=== PATIENT | male | born 1995 | race Caucasian/White ===

== ENCOUNTER 2021-05-17 13:46 | Outpatient (REF) | payer BC, OTHER, SELFPAY ==
[2021-05-17 14:37] LABS: Influenza A PCR NEGATIVE (Negative); Influenza B PCR NEGATIVE (Negative); Resp Syncy Virus RNA Qual PCR POSITIVE (Negative); SARS COV2 PCR INHOUSE NEGATIVE (Negative)
== END 2021-05-17 13:47 | disposition home or self-care (01) ==
LOC: HO.LNP 13:46
PROVIDERS: Visit Provider Physician Assistant Medical
DX: Z20.822 Contact with and (suspected) exposure to COVID-19 (principal); J06.9 Acute upper respiratory infection, unspecified
CPT/HCPCS: 0241U

== ENCOUNTER 2023-05-13 09:06 | Outpatient (AMB) | payer OTHER, SELFPAY ==
--- NOTE | 2023-05-13 09:46 | MHC.OFFWIV ---
Intake Vital Signs 05/13/23 09:54 Height 5 ft 9 in Weight 327 lb BMI 48.3 BP 120/80 Blood Pressure Location Rt brachial Position Sitting Pulse 73 Pulse Source Pulse Oximeter Temp 97.6 F Temp Source Oral Pulse Oximetry (%) 97 Oxygen Delivery Method Room Air Intake Visit Reasons: EST/cold/flu symptoms/[phone] Intake Note: Patient here for covid test as he was exposed to someone who had it about 1 week ago and was feeling fine until this past Thursday when he woke up with a bad headache, bodyaches. Patient Tobacco Use Status: Former Tobacco user Allergies amoxicillin Allergy (Verified 05/13/23 09:48) Rash Do you need a note to return to daycare/school/sports/work: Yes HPI HPI Comments History of Present Illness Details This is a 27-year-old male with past medical history of seasonal allergies and asthma presenting requesting testing for COVID-19. Patient states he was exposed to an individual with COVID-19 approximately 10 days ago when they were sharing a bong, smoking marijuana and his friend tested positive for COVID-19 the next day. Patient states he has been fully vaccinated for COVID-19 however has not received his most recent booster. Over the past 4 days the patient has developed headache, shortness of breath, cough and mild rhinorrhea. He denies having overt fevers or chills and has been taking Tylenol only for management of his headache. [facility] Social History Patient Tobacco Use Status: Former Tobacco user Review of Systems Const All systems reviewed & are unremarkable except as noted in HPI and below Denies chills, Denies fatigue and Denies fever(s) Eyes Reports no additional complaints ENT Reports nasal congestion, Denies sinus pressure and Reports other (Rhinorrhea) Card Reports no additional complaints and Reports dyspnea Resp Reports cough and Reports dyspnea GI Reports no additional complaints, Denies loose stools, Denies nausea and Denies vomiting Reports no additional complaints Musc Reports no additional complaints Skin/Breast Reports system reviewed and no additional complaints, except as documented Neuro Reports no additional complaints Psych Reports no additional complaints Endo Denies fatigue Virgil/Lymph Reports no additional complaints Physical Exam Vital Signs: Last Vital Signs Temp 97.6 F 05/13/23 09:54 Pulse 73 05/13/23 09:54 BP 120/80 05/13/23 09:54 Pulse Ox 97 05/13/23 09:54 Oxygen Delivery Method Room Air 05/13/23 09:54 BMI result Body Mass Index 48.3 Const General: cooperative, comfortable and no acute distress; No ill appearing Nutritional Appearance: obese Orientation/consciousness: patient oriented x3 Limitations: no limitations HEENT Head: Yes normal to inspection Ears: hearing grossly normal bilaterally, external ears normal and TM's normal bilaterally General nose exam: Normal external nose present and No nasal discharge present Face and sinus: Yes normal facial exam and No sinus tenderness Mouth: Normal oral and palatal mucosa present and moist mucous membranes Throat: Yes posterior oropharynx normal Eyes General: appearance normal, both eyes and all related structures Conjunctivae: conjunctivae normal Sclerae: sclerae normal EOM: EOMs intact bilaterally Resp Effort & Inspection: normal respiratory effort Auscultation: clear to auscultation bilaterally, no wheezes and lung sounds not diminished Cardio Rate: regular rate Rhythm: regular rhythm Neuro General: patient oriented x3 Psych Appearance: grossly normal Mental Status: mental status grossly normal Insight: Good insight present (Psych) Judgement: Good judgement present (Psych) Results Reviewed Results Reviewed: COVID 19 negative - results reviewed with patient. Assessment & Plan Assessment & Plan (1) Cough: Code(s): R05.9 - Cough, unspecified Plan: Testing for COVID-19 initiated and pending. (2) Body aches: Code(s): R52 - Pain, unspecified Plan: Increase water intake daily and use Tylenol or ibuprofen for symptoms. Follow-up with primary care within 7 days if your symptoms persist. Orders: Orders [facility]ax[facility] Covid-19 Ag Today R05.9 - Cough, unspecified, R52 - Pain, unspecified Coding Level of Care Code New Pt Level 3 (68700) Diagnoses Cough R05.9 Body aches R52 Time Spent (min) 25
[2023-05-13 09:54] VITALS: BP 120/80; PULSE 73; TEMP 36.4; O2SAT 97; BMI 48.3
== END 2023-05-13 10:20 | disposition home or self-care (01) ==
PROVIDERS: Visit Provider Physician Assistant
DX: R05.9 Cough, unspecified (principal); R52 Pain, unspecified
CPT/HCPCS: 99203

== ENCOUNTER 2023-05-13 10:18 | Outpatient (REF) | payer OTHER, SELFPAY | END 2023-05-13 10:19 | disposition home or self-care (01) | LOC: HO.HMGCLDS 10:18 | PROVIDERS: Visit Provider Physician Assistant | DX: R05.9 Cough, unspecified (principal); R52 Pain, unspecified | CPT/HCPCS: 87811; C9803 ==

== ENCOUNTER 2023-07-17 16:12 | Outpatient (AMB) | payer OTHER, SELFPAY ==
[2023-07-17 16:13] VITALS: BP 126/88; PULSE 67; O2SAT 100; BMI 48.6
--- NOTE | 2023-07-17 16:13 | MHC.PC.OV ---
Vital Signs 07/17/23 16:13 Height 5 ft 9 in Weight 329 lb BMI 48.6 BP 126/88 Blood Pressure Location Lt brachial Position Sitting Pulse 67 Pulse Source Pulse Oximeter Pulse Oximetry (%) 100 Oxygen Delivery Method Room Air Intake Visit Reasons: NPV/requesting phy Customs Verifier Required: No Allergies amoxicillin Allergy (Verified 07/17/23 16:29) Rash Medication List - Last Reconciled 07/17/23 by WALKER Aponte albuterol sulfate 90 mcg/actuation 2 puffs inhalation Q6H PRN emtricitabine-tenofovir (TDF) 200-300 mg 1 tab PO DAILY estradiol mg PO loratadine (Claritin) 10 mg PO DAILY PRN Tobacco use date assessed: 07/17/23 Dental Screening Dental Screen Date: 07/17/23 Did you have a dental visit in the last 12 months?: Yes Did you have a dental problem in the last 6 months where you did not have access to dental care?: No Was dental information given to patient?: Patient has dentist HPI NPV/requesting phy HPI Details 28-year-old patient (transitioning from male to female) presents today for physical exam as a new patient. Previous PCP at [facility] about 1 year ago. Medical history significant for postnasal drip, MARY-on CPAP, depression with anxiety-will be seeing therapist at [facility], morbid obesity-interested in weight management referral. Denies shortness of breath or chest pain. No other concerns. [facility] Medical History Body aches Cough Viral illness Surgical History H/O adenoidectomy H/O: knee surgery Hx of tonsillectomy Family History (Updated 07/17/23 @ 16:37 by WALKER Aponte) Mother No problems noted. Maternal Grandmother Diabetes Father No problems noted. Paternal Grandfather Heart attack Social History Patient Tobacco Use Status: Former Tobacco user Cognitive needs: No Hearing needs: No Vision needs: No Questionnaire PHQ-9 Over the last 2 weeks, how often have you been bothered by any of the following problems? 1. Little interest or pleasure in doing things: not at all 2. Feeling down, depressed, or hopeless: several days 3. Trouble falling or staying asleep, or sleeping too much: not at all 4. Feeling tired or having little energy: not at all 5. Poor appetite or overeating: not at all 6. Feeling bad about yourself - or that you are a failure or have let yourself or your family down: not at all 7. Trouble concentrating on things, such as reading the newspaper or watching television: not at all 8. Moving or speaking so slowly that other people could have noticed. Or the opposite - being so fidgety or restless that you have been moving around a lot more than usual: not at all 9. Thoughts that you would be better off or of hurting yourself in some way: not at all Total score: 1 Depression Screening Interpretation: Positive Depression Screening Follow-up: Existing condition and In treatment Depression Screening Done: Yes 93925 - PHQ-9 Billing: Yes Source: Developed by Drs. Isaak Ordoñez, Clare Carrillo, Chema Smith and colleagues, with an educational nelson from [employer]. Thrive Questionnaire Date Thrive assessed: 07/17/23 I am a: Patient What is your living situation today?: I have a steady place to live Within the past 12 months, did the food you bought not last and you didn't have the money to get more?: Never true Within the past 12 months, did you worry whether your food would run out before you got money to buy more?: Never true Do you have trouble paying for medicines?: No Do you have trouble getting transportation to medical appointments?: No Do you have trouble paying your heating and electricity bill?: No Do you have trouble taking care of your child, family member or friend?: No Do you have trouble with day-to-day activities such as bathing, preparing meals, shopping, managing finances, etc.?: No Are you currently unemployed and looking for a job?: No Are you interested in more education?: No Currently or been in a relationship where the following occur: no concerns reported AUDIT C Alcohol Use Questionnaire (AUDIT-C) 1. How often do you have a drink containing alcohol?: 2-4 times a month 2. How many drinks containing alcohol do you have on a typical day when you are drinking?: 3 or 4 3. How often do you have six or more drinks on one occasion?: Never Total Score: 3 Score Reviewed/Action Taken: No MAYTE-7 AMB Questionnaire MAYTE-7 Date MAYTE - 7 assessed: 07/17/23 (pt seeing therapist ) Feeling nervous, anxious, or on edge: 0 = Not at all Not being able to stop or control worryin = Several days Worrying too much about different things: 0 = Not at all Trouble relaxin = Not at all Being so restless that it is hard to sit still: 0 = Not at all Becoming easily annoyed or irritable: 0 = Not at all Feeling afraid as if something awful might happen: 0 = Not at all Total MAYTE-7 score (0-4 normal; 5-9 mild; 10-14 moderate; 15-21 severe): 1 Source: Developed by Drs. Isaak Ordoñez, Clare Carrillo, Chema Smith and colleagues, with an educational nelson from [employer]. MAYTE-7 Assessment Billing MAYTE-7 Assessment Tool: MAYTE-7 Assessment 96607 Review of Systems Const Denies body aches, Denies chills, Denies fever(s) and Denies headache(s) Eyes Denies change in vision ENT Denies dizziness, Denies otalgia, Denies headache(s), Denies nasal discharge, Denies sinus pain and Denies sore throat Card Denies chest pain, Denies edema, Denies lightheadedness and Denies dyspnea Resp Denies cough, Denies dyspnea and Denies wheezing GI Denies abdominal pain, Denies constipation, Denies diarrhea, Denies nausea and Denies vomiting Denies dysuria Musc Denies myalgias Skin/Breast Denies rash Neuro Denies dizziness and Denies headache(s) Aller/Immun Denies wheezing Physical exam (Primary Care) Vital Signs: Last Vital Signs Pulse 67 07/17/23 16:13 BP 126/88 07/17/23 16:13 Pulse Ox 100 07/17/23 16:13 Oxygen Delivery Method Room Air 07/17/23 16:13 BMI result Body Mass Index 48.6 Tobacco/Smoking Status: Tobacco use Status Tobacco use date assessed 07/17/23 07/17/23 16:22 Patient Tobacco Use Status Former Tobacco user 07/17/23 16:22 PHQ-9: PHQ-9 Score PHQ-9: Total score 1 07/17/23 16:38 Depression Screening Interpretation: Positive Depression Screening Follow-up: Existing condition and In treatment Thrive Assessment: Date of Thrive Assessment Date Thrive assessed 07/17/23 07/17/23 16:22 Currently or been in a relationship where the following occur: no concerns reported Const General: cooperative and no acute distress Orientation/consciousness: patient oriented x3 HENMT Head: Yes normocephalic and Yes atraumatic Ears: TM's normal bilaterally Face and sinus: Yes sinuses nontender Mouth: oropharynx normal and moist mucous membranes Throat: Yes posterior oropharynx normal Eyes General: appearance normal, both eyes and all related structures Pupils: Equal, round and reactive pupils present EOM: EOMs intact bilaterally Neck Neck: Yes normal visual inspection, Yes full ROM and Yes no lymphadenopathy Thyroid: Thyroid normal Resp Effort & Inspection: normal respiratory effort and able to speak in complete sentences Auscultation: clear to auscultation bilaterally, no crackles, no rales, no rhonchi and no wheezes Cardio Rate: regular rate Rhythm: regular rhythm Heart sounds: S1 normal heart sound present, S2 normal heart sound present and no murmurs GI Palpation (GI): Soft to palpation, not firm, nontender, no guarding, not rigid and no hepatosplenomegaly Auscultation: normal bowel sounds General: No CVA tenderness Back/Spine/Pelvis Back: No CVA tenderness Skin General skin exam: no rashes or lesions noted Neuro General: patient oriented x3 Cranial nerves: Yes Equal, round and reactive pupils present Gait exam (Neuro): Normal gait present Extrem General: Yes full ROM and No edema Office Procedures Flu Questionnaire Does the patient have a severe egg allergy?: No Does the patient have severe life threatening allergies?: No Does the patient have a fever or illness today?: No Has the patient ever had Guillain-Mize Syndrome?: No Has the patient ever had any past reaction to a flu shot?: No Immunizations flu vacc [id number] 6mos up(PF) 60 mcg(15 mcgx4)/0.5 mL IM syringe Performing Provider: WALKER Aponte Performing Location: [facility] Primary [facility] Administered by: JENNIFER Workman on 07/17/23 16:26 Dose Route Admin Location Dispensed Lot Number Expiration Date NDC Nurse Case Manager 0.5 mL IM Left Deltoid 0.5 mL [id number] 01/31/24 [id number] T3 MOTION VIS Given Date VIS Provided VIS Publication Date 07/17/23 Single Vaccine 21 Eligibility Eligibility Date Funding Source Not [facility] Eligible 07/17/23 Private Assessment and Plan Assessment & Plan (1) Postnasal drip: Code(s): R09.82 - Postnasal drip Plan: Stable Reports using albuterol inhaler p.r.n. and Claritin p.r.n. (2) MARY (obstructive sleep apnea): Comment: on CPAP Code(s): G47.33 - Obstructive sleep apnea (adult) (pediatric) (3) Depression with anxiety: Code(s): F41.8 - Other specified anxiety disorders Plan: Will be seeing therapist at [facility] (4) Adult general medical exam: Code(s): Z00.00 - Encounter for general adult medical examination without abnormal findings Plan: Repeat in 1 year (5) Morbid obesity with BMI of 45.0-49.9, adult: Code(s): E66.01 - Morbid (severe) obesity due to excess calories; Z68.42 - Body mass index [BMI] 45.0-49.9, adult Plan: Healthy food choices and exercise as tolerated Weight management referral (6) Gender dysphoria: Code(s): F64.9 - Gender identity disorder, unspecified Plan: Followed by [facility] on estradiol (7) On pre-exposure prophylaxis for HIV: Code(s): Z79.899 - Other extermination supervisor (current) drug therapy Plan: Followed by [facility] Orders: Orders Influenza [id number] Immunization 07/17/23 Z23 - Encounter for immunization TSH reflex Free T4 07/17/23 Z00.00 - Encounter for general adult medical examination without abnormal findings Lipid Panel 07/17/23 Z00.00 - Encounter for general adult medical examination without abnormal findings Comprehensive [place]. Panel Fast 07/17/23 Z00.00 - Encounter for general adult medical examination without abnormal findings Complete Blood Count Auto Diff 07/17/23 Z00.00 - Encounter for general adult medical examination without abnormal findings Vitamin D 25-OH Total 12/15/23 Z00.00 - Encounter for general adult medical examination without abnormal findings Referrals Medical Weight Management Referral E66.01 - Morbid (severe) obesity due to excess calories, Z68.42 - Body mass index [BMI] 45.0-49.9, adult Medications: New albuterol sulfate 90 mcg/actuation 2 puffs inhalation Q6H PRN 8.5 grams 0RF shortness of breath or wheezing R09.82 - Postnasal drip Coding Level of Care Code New Pt Prev Care 18-39yr(55170 Diagnoses Postnasal drip R09.82 MARY (obstructive sleep apnea) G47.33 Depression with anxiety F41.8 Adult general medical exam Z00.00 Morbid obesity with BMI of 45.0-49.9, adult E66.01; Z68.42 Gender dysphoria F64.9 On pre-exposure prophylaxis for HIV Z79.899 Additional Codes MAYTE-7 Assessment Billing - MAYTE-7 Assessment Tool: MAYTE-7 Assessment 87403 ([id number])
== END 2023-07-17 16:50 | disposition home or self-care (01) ==
PROVIDERS: Visit Provider Nurse Practitioner Family
DX: Z00.00 Encounter for general adult medical examination without abnormal findings (principal); E66.01 Morbid (severe) obesity due to excess calories; Z68.42 Body mass index [BMI] 45.0-49.9, adult; R09.82 Postnasal drip; G47.33 Obstructive sleep apnea (adult) (pediatric); F41.8 Other specified anxiety disorders; F64.9 Gender identity disorder, unspecified; Z79.899 Other long term (current) drug therapy
CPT/HCPCS: 90471; 90686; 96127; 99385

== ENCOUNTER 2023-09-01 08:32 | Outpatient (AMB) | payer OTHER, SELFPAY ==
[2023-09-01 09:09] VITALS: BP 140/78; PULSE 96; TEMP 36.5; O2SAT 96; BMI 48.7
--- NOTE | 2023-09-01 09:09 | MHC.OFFWIV ---
Intake Vital Signs 09/01/23 09:09 Height 5 ft 9 in Weight 149.685 kg BMI 48.7 BP 140/78 H Blood Pressure Location Lt brachial Position Sitting Pulse 96 Pulse Source Pulse Oximeter Temp 97.7 F Temp Source Temporal Artery Scan Pulse Oximetry (%) 96 Oxygen Delivery Method Room Air Intake Visit Reasons: EST/persistant cough/ear pain ([phone]) Intake Note: pt is here today for persistant cough ear pain started thursday Patient Tobacco Use Status: Former Tobacco user Allergies amoxicillin Allergy (Verified 09/01/23 09:10) Rash Do you need a note to return to daycare/school/sports/work: Yes HPI HPI Comments History of Present Illness Details 28-year-old male presents with fatigue, malaise, myalgias, bilateral ear pain worse on the right described as a throbbing pain, productive cough of yellow/white sputum this has been ongoing for 2 weeks not improving. Denies recent sick contacts. Reports intermittent wheezing. Denies chest pain, shortness of breath, nausea, vomiting, diarrhea, abdominal pain. Physical exam significant for wheezing the left upper lung. Speaking full sentences controlling secretions well also noted to have erythematous and bulging right-sided tympanic membrane. History and physical exam consistent with otitis media as well as bronchitis. Unlikely pulmonary embolism, patient PERC negative, ACS, dissection, acute respiratory distress, mastoiditis or otitis externa. Will cover with doxycycline 100 mg p.o. b.i.d. as this will cover for bronchitis as well as otitis as patient does have an allergy to amoxicillin. Will also send prednisone, albuterol inhaler. Educated patient on diagnosis and treatment plan, answered all question, patient verbalizes understanding. At this time patient will be discharged home, advised to return with new or worsening symptoms. Educated on worrisome signs and symptoms and when to return. At this time I feel comfortable discharge home. [facility] Medical History Body aches Cough Viral illness Surgical History H/O adenoidectomy H/O: knee surgery Hx of tonsillectomy Family History Mother No problems noted. Maternal Grandmother Diabetes Father No problems noted. Paternal Grandfather Heart attack Social History Patient Tobacco Use Status: Former Tobacco user Cognitive needs: No Hearing needs: No Vision needs: No Review of Systems Const All systems reviewed & are unremarkable except as noted in HPI and below Physical Exam Vital Signs: Last Vital Signs Temp 97.7 F 09/01/23 09:09 Pulse 96 09/01/23 09:09 BP 140/78 H 09/01/23 09:09 Pulse Ox 96 09/01/23 09:09 Oxygen Delivery Method Room Air 09/01/23 09:09 BMI result Body Mass Index 48.7 vss 96% even after ambulation Appearance: Alert.? Oriented X3.? No acute distress.? Head: Normocephalic, atraumatic, no step-offs or deformities Eyes: Pupils equal, round and reactive to light.? ENT: wheezing the left upper lung. Speaking full sentences controlling secretions well Neck: Normal inspection.? Neck supple.? CVS: Normal heart rate and rhythm.? Pulses normal.? Respiratory: No respiratory distress.? Breath sounds with diffuse wheezing bilaterally.? Abdomen: Soft and nontender.? Skin: Skin warm and dry.? Normal skin color.? Normal skin turgor.? Extremities: No lower extremity edema.? No calf ttp. 5/5 strength to bilateral upper and lower extremities Neuro: Oriented X 3.? No motor deficit.? No sensory deficit. CN 2-12 intact Assessment & Plan Assessment & Plan (1) Otitis media: Code(s): H66.90 - Otitis media, unspecified, unspecified ear (2) Bronchitis: Code(s): J40 - Bronchitis, not specified as acute or chronic Plan Take your medications as prescribed. If you were prescribed antibiotics today, it is important that you take your medication to their entirety, do not skip any doses, do not finish them early. Follow-up with your primary care provider this week. Return to the emergency department with new or worsening symptoms. Such as fevers, chills, chest pain, shortness of breath, nausea, vomiting, dizziness, headache, vision changes, lethargy In case of emergency call 911 Medications: New doxycycline hyclate 100 mg PO BID 7 days 14 caps 0RF prednisone 40 mg (2 x 20 mg) PO DAILY 5 days 10 tabs 0RF albuterol sulfate 90 mcg/actuation 2 puffs inhalation Q6H PRN 6.7 grams 0RF shortness of breath or wheezing benzonatate 100 mg PO BID PRN 14 caps 0RF cough Coding Level of Care Code Est Pt Level 3 (16246) Diagnoses Otitis media H66.90 Bronchitis J40
== END 2023-09-01 09:40 | disposition home or self-care (01) ==
PROVIDERS: PCP Nurse Practitioner Family; Visit Provider Physician Assistant
DX: H66.90 Otitis media, unspecified, unspecified ear (principal); J40 Bronchitis, not specified as acute or chronic
CPT/HCPCS: 99213

== ENCOUNTER 2024-08-31 11:25 | Outpatient (AMB) | payer OTHER, SELFPAY ==
--- NOTE | 2024-08-31 11:43 | AM.OFFWIN_ITS ---
Intake Vital Signs 08/31/24 12:05 Weight 367 lb BP 108/72 Blood Pressure Location Lt brachial Position Sitting Pulse 82 Pulse Source Pulse Oximeter Temp 97.8 F Temp Source Oral Pulse Oximetry (%) 96 Oxygen Delivery Method Room Air Intake Visit Reasons: EP sore throat, cough, phlegm Intake Note: Patient here for cough, sinus congestion and loss of voice since last week Patient Tobacco Use Status: Former Tobacco user Allergies amoxicillin Allergy (Verified 08/31/24 12:05) Rash Do you need a note to return to daycare/school/sports/work: Yes HPI HPI Comments History of Present Illness Details Patient is a 29yo who presents to office with cold Started one week ago Started as congestion/seasonal Has progressed to St and cough Said irritated mucus in phlegm and lungs; pink color this am which has resolved No fever or chills currently + ear ache and hx of infection Has taken OTC cough medicine and herbal remidies Has used Albuterol in past but does not have currently PFSH Medical History Body aches Cough Viral illness Surgical History H/O adenoidectomy H/O: knee surgery Hx of tonsillectomy Family History Mother No problems noted. Maternal Grandmother Diabetes Father No problems noted. Paternal Grandfather Heart attack Social History Patient Tobacco Use Status: Former Tobacco user Cognitive needs: No Hearing needs: No Vision needs: No Review of Systems Const Denies chills, Reports fatigue and Denies fever(s) Eyes Denies change in vision ENT Denies dizziness, Reports otalgia, Reports nasal congestion and Reports sore throat Card Denies chest pain, Denies syncope and Denies dyspnea Resp Reports change in phlegm color, Reports cough and Denies dyspnea GI Denies abdominal pain Musc Denies myalgias Skin/Breast Denies rash Neuro Denies dizziness and Denies syncope Endo Reports fatigue Physical Exam Vital Signs: Last Vital Signs Temp 97.8 F 08/31/24 12:05 Pulse 82 08/31/24 12:05 BP 108/72 08/31/24 12:05 Pulse Ox 96 08/31/24 12:05 Oxygen Delivery Method Room Air 08/31/24 12:05 General: Non-toxic, NAD. Speaking full sentences. Skin: Warm dry throughout Eye: EOMI HENT: Airway patent. Uvula midline. Minimal pharyngeal erythema or edema. 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 Mucosa moist Bilateral canals clear. TM non-erythematous, non-bulging. No TM perforation or hemotympanum noted. Respiratory: Faint wheeze L upper and lower lungs. Otherwise, CTA bilaterally. No rales or rhonchi Cardiac: RRR. No murmur Neurology: Alert. No aphasia or facial droop. Gait without abnormality Psych: Good mood and affect Assessment & Plan Assessment & Plan (1) Acute bacterial bronchitis: Code(s): J20.8 - Acute bronchitis due to other specified organisms; B96.89 - Other specified bacterial agents as the cause of diseases classified elsewhere Plan: Patient seen and evaluated. Has inhaler called in by PCP; difficulty getting at pharmacy Azithromycin called in Discussed pink tint in phlegm that he experienced earlier as irritation. Discussed if it becomes michelle sized, clot like or any associated CP, SOB syncope etc go to ER immediately for concern PE. Vitals are stable and pt aware and agree with plan Patient gave verbal understanding and had no additional questions or concerns at time of discharge All questions answered Medications: New azithromycin For 250 mg dose pack: take 500 mg today (day 1), then 250 mg for 4 days (days 2-5) PO 6 tabs 0RF Coding Level of Care Code Est Pt Level 3 (74740) Diagnoses Acute bacterial bronchitis J20.8; B96.89
[2024-08-31 12:05] VITALS: BP 108/72; PULSE 82; TEMP 36.6; O2SAT 96
--- OUTSIDE RECORDS SUMMARY | 2024-08-31 13:50 | XMS_ITS | Data Portability ---
Author Organization [facility], [address] Address [address] [place] [address] Assessment No assessment recorded. Plan of Treatment Reminders Order Date Submit Date Provider Last Modified By Organization Details Last Modified Time Details Appointments None recorded. Lab rapid SARS CoV 2 Ag, QL IA, respiratory specimen 2022 023 [facility], [address] [place] [address], [id number], 14:01:30 Referral None recorded. Procedures None recorded. Surgeries None recorded. Imaging None recorded. Medication Orders cefdinir 300 mg capsule 2022 023 [id number], [address] [place], [place], [id number], 3 20:15:48 prednisone 20 mg tablet 2022 023 [facility] #[id number], [address], [place], [id number], 3 14:05:32 Allergy Relief (fluticason e) 50 mcg/actuati on nasal spray,suspe nsion 2022 023 [facility] #[id number], [address], [place], [id number], 3 14:05:32 Patient TargetsNo targets recorded. Patient Instructions Encounter Date Encounter Id Patient Instructions Last Modified By Organization Details Last Modified Time 09/27/2022 [id number] coronavirus (covid-19): care instructions Not available 09/27/2022 14:02:59 headache: care instructions Not available 09/27/2022 14:02:59 If you test positive for COVID-19, stay home for at least 5 days and isolate from others in your home. You are likely most infectious during these first 5 days. Wear a high-quality mask if you must be around others at home and in public. Do not go places where you are unable to wear a mask. For travel guidance, see CDC? s Travel webpage. Do not travel. Stay home and separate from others as much as possible. Use a separate bathroom, if possible. Take steps to improve ventilation at home, if possible. Don? t share personal household items, like cups, towels, and utensils. Monitor your symptoms. If you have an emergency warning sign (like trouble breathing), seek emergency medical care immediately. If you had symptoms and: Your symptoms are improving You may end isolation after day 5 if: You are fever-free for 24 hours (without the use of fever-reducing medication). Your symptoms are not improving Continue to isolate until: You are fever-free for 24 hours (without the use of fever-reducing medication). Your symptoms are improving. Regardless of when you end isolation Until at least day 11: Avoid being around people who are more likely to get very sick from COVID-19. Remember to wear a high-quality mask when indoors around others at home and in public. Do not go places where you are unable to wear a mask until you are able to discontinue masking (see below). For travel guidance, see CDC? s Travel webpage. Not available 09/27/2022 14:04:45 An ear infection may start with a cold and affect the middle ear (otitis media). It can hurt a lot. Most ear infections clear up on their own in a couple of days and do not need antibiotics. Also, antibiotics do not work against viruses, which may be the cause of your infection. Regular doses of pain relievers are the best way to reduce your fever and help you feel better. How can you care for yourself at home? Take pain medicines exactly as directed. If the doctor gave you a prescription medicine for pain, take it as prescribed. If you are not taking a prescription pain medicine, take an vskr-eym-hoyxixm medicine, such as acetaminophen (Tylenol), ibuprofen (Advil, Motrin), or naproxen (Aleve). Read and follow all instructions on the label. Do not take two or more pain medicines at the same time unless the doctor told you to. Many pain medicines have acetaminophen, which is Tylenol. Too much acetaminophen (Tylenol) can be harmful. Plan to take a full dose of pain reliever before bedtime. Getting enough sleep will help you get better. Try a warm, moist face cloth on the ear. It may help relieve pain. If your doctor prescribed antibiotics, take them as directed. Do not stop taking them just because you feel better. You need to take the full course of antibiotics. [email or web address] Not available 09/27/2022 14:04:35 Reason for Referral None Reported. Results Created Date Observation Date Name Description Value Unit Range Abnormal Flag Note LastModifiedBy Organization Detail LastModifiedTime 09/27/1909/27/2022 rapid SARS CoV 2 Ag, QL IA, respi rator y speci men Unknown Analyte Normal =Negat marie Not Available [address], [phone], 09/27/2022 13:26:02 09/27/1909/27/2022 rapid SARS CoV 2 Ag, QL IA, respi rator y speci men Unknown Analyte negati ve Not Available [address] [place] [address], [phone], 09/27/2022 13:26:02 Result Notes None recorded. Problems Name Problem SNOMED Code Status Onset Date Resolution Date Notes Provider Name and Address Organization Details Recorded Time Anxiety 44585838 Active 023 [facility] 3 13:29:22 Depressive disorder 54439825 Active 023 [facility]I [facility] 3 13:29:29 Problem Notes None recorded. Procedures Surgical History Date Name Laterality Status Provider Name and Address Organization Details Recorded Time tonsillectomy completed Annette Philippejaron PA - [facility] 09/27/2022 13:31:54 repair of meniscus completed nAnette Estradaoscar PA - [facility] 09/27/2022 13:32:13 Imaging Results None recorded. Procedure Notes None recorded. Medical Equipment None Reported. Allergies Allergen ID Allergen Name Allergen Category Reaction Reaction Severity Criticality Documentation Date Start Date Code Code System Note Provider Name and Address Organization Details Recorded Time amoxicill in medicatio n rash Not available Not available 09/27/2022 723 RxNorm Annettepj Bennettbooneoscar miguel PA - [facility] 13:27:37 Medications Name Sig Start Date Stop Date Status Note LastModified by Organization Details LastModified Time prednisone 20 mg tablet Take 2 tablets every day by oral route in the morning for 4 days. 2022 active Not Available Not Available Not Avai lable cefdinir 300 mg capsule Take 2 capsules every day by oral route with meals for 10 days. 2022 active Not Available Not Available Not Avai lable Claritin active Not Available Not Avai lable Not Available Allergy Relief (fluticasone ) 50 mcg/actuatio n nasal spray,suspen [place] 1 spray twice a day by intranasal route as directed for 30 days. 2022 active Not Available Not Available Not Avai lable albuterol 90 mcg-budesoni de 80 mcg/actuatio n HFA aerosol inhaler Inhale by inhalation route. active Not Available Not Available No t Available Vitals Date Recorded Body height Provider Name an d Address Organization Details Last Updated DateTime 09/27/2022 175.26 cm Annettepj Philippejaron PA - [facility] 09/27/2022 13:32:22 Date Recorded Body mass index (BMI) Body weight Provider Name and Address Organization Details Last Updated DateTime 09/27/2022 48 kg/m2 726644.52 g Annette Jace [facility] 09/27/2022 13:32:31 Date Recorded Pain severity - 0-10 verbal numeric rating [Score] - Reported Provider Name and Address Organization Details Last Updated DateTime 09/27/2022 2 Annette Mccormick PA - [facility] 09/27/2022 13:32:40 Date Recorded Oxygen saturation Oxygen saturation in Arterial blood by Pulse oximetry Provider Name and Address Organization Details Last Updated DateTime 09/27/2022 100 % 100 % Annette Mccormick PA - [facility] 09/27/2022 13:34:16 Date Recorded Heart rate Provider Name an d Address Organization Details Last Updated DateTime 09/27/2022 68 /min Annette Mccormick PA - [facility] 09/27/2022 13:34:19 Date Recorded Respiratory rate Provider Name a nd Address Organization Details Last Updated DateTime 09/27/2022 18 /min Annette Mccormick PA - [facility] 09/27/2022 13:34:21 Date Recorded Body temperature Provider Name a nd Address Organization Details Last Updated DateTime 09/27/2022 97.8 [degF] Annette Mccormick PA - [facility] 09/27/2022 13:34:24 Date Recorded Systolic blood pressure Diastolic blood pressure Provider Name and Address Organization Details Last Updated DateTime 09/27/2022 129 mm[Hg] 89 mm[Hg] Annette Mccormick PA - [facility] 09/27/2022 13:34:12 Social History Question Answer Notes LastModified by Organizat ion Details LastModified Time Tobacco Smoking Status Former Smoker Annette Mccormick miguel PA - [facility] 09/27/2022 13:31:43 What Is Your Level Of Alcohol Consumption? Occasional 2x/month Information not available 09/27/2022 Which Illicit Or Recreational Drugs Have You Used? Marijuana Information not available 09/27/2022 When Did You Quit Smoking? 1-5yearssincel astcigarette Information not available 09/27/2022 Do You Use Any Illicit Or Recreational Drugs? Yes Information not available 09/27/2022 Have You Recently Traveled Abroad? No Information not available 09/27/2022 Do You Or Have You Ever Used Any Other Forms Of Tobacco Or Nicotine? No Information not available 09/27/2022 Sex: Unknown Functional Status None recorded. Mental Status None recorded. Family History Relationship Description Onset Age of this Age Resolved Age Notes LastModified by Organization Details LastModified Time Paternal Uncle Heart disease [email or web address] Not available 2022 13:29:45 Paternal Grandfather Heart disease [email or web address] Not available 2022 13:29:45 Paternal Grandfather Cardiac arrest [email or web address] Not available 2022 13:30:03 Maternal Grandmother Diabetes mellitus [email or web address] Not available 2022 13:30:17 Medical History No medical history recorded. Immunizations Vaccine Type Date Status Note Provider Nam e and Address Organization Details Recorded Time IPV 0 completed Annette Monfette null, PA - [facility] 09/27/2022 13:27:21 MMR 6 completed Annette Monfette null, PA - [facility] 09/27/2022 13:27:21 MMR 0 completed Annette Monfette null, PA - [facility] 09/27/2022 13:27:21 COVID-19, mRNA, LNP-S, PF, 30 mcg/0.3 mL dose 1 completed Annette Monfette null, PA - [facility] 09/27/2022 13:27:21 COVID-19, mRNA, LNP-S, PF, 30 mcg/0.3 mL dose 1 completed Annette Monfette null, PA - [facility] 09/27/2022 13:27:21 Tdap 9 completed Annette Monfette null, PA - [facility] 09/27/2022 13:27:21 Tdap 8 completed Annette Monfette null, PA - [facility] 09/27/2022 13:27:21 varicella 8 completed Annette Monfette null, PA - [facility] 09/27/2022 13:27:21 varicella 6 completed Annette Monfette null, PA - [facility] 09/27/2022 13:27:21 OPV 6 completed Annette Monfette null, PA - [facility] 09/27/2022 13:27:21 OPV 6 completed Annette Monfette null, PA - [facility] 09/27/2022 13:27:21 OPV 6 completed Annette Monfette null, PA - [facility] 09/27/2022 13:27:21 PLfP-Ziv-SQF 6 completed Annette Monfette null, PA - [facility] 09/27/2022 13:27:21 TGnU-Tjv-FMP 7 completed Annette Monfette null, PA - [facility] 09/27/2022 13:27:21 TAmB-Tre-GOX 6 completed Annette Monfette null, PA - [facility] 09/27/2022 13:27:21 GUhR-Pid-PJP 6 completed Annette Monfette null, PA - [facility] 09/27/2022 13:27:21 Influenza, split virus, trivalent, preservative 1 completed Annette Monfette null, PA - [facility] 09/27/2022 13:27:21 Hep B, adolescent or pediatric 6 completed Annette Monfette null, PA - [facility] 09/27/2022 13:27:21 Hep B, adolescent or pediatric 6 completed Annette Monfette null, PA - [facility] 09/27/2022 13:27:21 Hep B, adolescent or pediatric 5 completed Annette Monfette null, PA - [facility] 09/27/2022 13:27:21 Hep B, adult 1 completed Annette Monfette null, PA - [facility] 09/27/2022 13:27:21 meningococcal MCV4P 8 completed Annette Monfette null, PA - [facility] 09/27/2022 13:27:21 DTaP 6 completed Annette Monfette null, PA - [facility] 09/27/2022 13:27:21 DTaP 6 completed Annette Estradae null, PA - [facility] 09/27/2022 13:27:22 DTaP 7 completed Annette Estradae null, PA - [facility] 09/27/2022 13:27:22 DTaP 6 completed Annette Estradae null, PA - [facility] 09/27/2022 13:27:22 DTaP 0 completed Annette Estradae null, PA - [facility] 09/27/2022 13:27:22 Past Encounters Encounter ID Performer Location Encounter Start Date Encounter Closed Date Diagnosis/Indication Diagnosis SNOMED-CT Code Diagnosis ICD10 Code Diagnosis Note [id number] [address] [place] [address] 03/08/2022 08:32:11 03/08/2022 11:18:16 [id number] [address] [place] [address] 04/15/2018 13:06:38 04/15/2018 14:00:54 [id number] [address] [place] [address] 04/03/2022 08:36:05 04/03/2022 12:38:48 [id number] [address] [place] [address] 08/13/2019 16:29:07 08/13/2019 17:04:35 [id number] [address] [place] [address] 03/27/2021 11:40:54 03/27/2021 13:38:00 [id number] Miguel Newsome NP [address] [place] [address] 09/27/2022 10:47:12 09/27/2022 14:11:47 Exposure to SARS-CoV-2 339450908 Z20.822 Acute left otitis media 235648836 H66.92 Health Concerns Section Related Observation LastModified by Organization Detai ls LastModified Time None Recorded Concern Status LastModified by Organization Details LastModified Time None Recorded Advance Directives Directive None Recorded Payers Encounter Date Sequence Insurance Name Policy Number Policy Vick Covered Member ID Vick Member ID Guarantor Name 09/27/2022 1 [facility] [id number] Miki Lai [id number] Miki Lai 09/27/2022 1 [place] BC[place]SE GUADALUPE (PPO) [id number] Miki Lai [id number] Miki Lai Notes Date Note Type Note Provider Name and Address Organization Details Recorded Time 3 text/html Sore throatReported bypatient.Source of patient informationInformation obtained from patient; Patient arrived at Urgent Care ambulatory; learning styles: auditory Location:throat Severity:mild Quality:sharp; burning Onset/Timin days Associated Symptoms:no sputum production; no shortness of breath; no wheezing; no vomiting; no nausea;sore throat;hoarseness;coughing; sinus pain/ congestion Context:no foreign travel; non-smoker Miguel Newsome NP [address] [place], [address], PA - [facility] 09/27/2022 15:10:19
--- OUTSIDE RECORDS SUMMARY | 2024-08-31 13:50 | XMS_ITS ---
Author Organization [facility] Address [address] [place] [phone] Care Team Providers Care Warehouse Processor Name Role Phone MARGA LEON Unavailable [phone] REASON FOR VISIT GAH F/U, PrEP F/U Social History Sex Assigned At : Social History Observation Description Sex Assigned At Male Encounters Encounter Location Date Provider Diagnosis [address] [id number] 08/2023 MARGA LEON Plan Of Treatment Next Appt Details Provider Name:RAZIA CISNEROS , 09/27/2024 02:00:00 PM, [address] [place] [address], [facility], [place], [place], [phone], Progress Notes * Miki GREENDOB: [birth year] (29 yo M)Acc No.[id number]:06/03/2024 Gender affirming hormones fo llow up visit Patient:?Miki GREEN Provider:CIELO LEON :1995???Age:28 Y???Sex:Male(T) Date:06/03/2024 Address:[id number] Subjective: * Chief Complaints: * ???1. GAH F/U, PrEP F/U. * Medical History:? Objective: * Vitals:? Assessment: Plan: * Treatment: * Billing Information: * Visit Code:? * Procedure Codes:? * Electronic signature of SEEMA LEON CNM on 08/31/2024 at 01:50 PM EST Sign off status: Pending * Provider:CIELO LEON Date:?06/03/2024 Generated for Prem salinas/Chacha/Juwan on:?08/31/2024 01:50 PM EST
--- OUTSIDE RECORDS SUMMARY | 2024-08-31 13:51 | XMS_ITS | Clinical Summary ---
Author Organization [facility] Address [address] [place] [address] Phone Care Team Providers Care Material Planning Analyst Name Role Phone Irwin Nicholson MD Primary Care Provider [phone] Immunizations Name Administration Dates Next Due DTaP 5 07/24/2000, 7,02/15/1996, 996,1995 Hep A, ped/adol 02/20/2012,02/13/2011 Hep B, ped/adol 02/15/1996,1995,1995 Hib (PRP-T) 11/16/1996, 6,1995, 996 IPV 07/24/2000, 6,1995, 996 Influenza, injectable, trivalent 04/22/2010 MMR 07/24/2000,07/15/1996 Meningococcal Conj (Menactra) MCV4P 03/01/2008 Tdap 03/01/2008 Varicella 03/01/2008,07/15/1996 Social History Tobacco Use Types Packs/Day Years Used Date Smoking Tobacco: Never Comments:Never Smoker Sex and Gender Information Value Date Recorded Sex Assigned at Not on file Legal Sex Male 6:42 PM EDT Gender Identity Not on file Sexual Orientation Not on file Last Filed Vital Signs Vital Sign Reading Time Taken Comments Blood Pressure - - Pulse 80 10/30/2016 10:41 AM EDT Temperature 36.4 ??C (97.6 ??F) 01/16/2017 11:05 AM E DT Respiratory Rate - - Oxygen Saturation - - Inhaled Oxygen Concentration - - Weight 156 kg (343 lb) 01/16/2017 11:05 AM EDT Height 171.5 cm (5' 7.5 ) 01/16/2017 11:05 AM ED T Body Mass Index 52.93 01/16/2017 11:05 AM EDT Plan of Treatment Health Maintenance Due Date Last Done Comments DTaP,Tdap,and Td Vaccines (7 - Td or Tdap) 03/01/2018 03/01/2008, 07/24/2000, 01/13/1997, Additional history exists Influenza Vaccines (#1) 2024 04/22/2010 COVID-19 Vaccine ( season) 2024 Hepatitis B Vaccines Completed 02/15/1996, 1995, 1995 HIB Vaccines Completed 11/16/1996, 01/31, 1995, Additional history exists IPV Vaccines Completed 07/24/2000, 01/31, 1995, Additional history exists MMR Vaccines Completed 07/24/2000, 07/15/1996 Meningococcal Vaccine Aged Out 03/01/2008 No [place]by eligible based on patient's age to complete this topic Varicella Vaccines Completed 03/01/2008, 07/15/1996 Hepatitis A Vaccines Completed 02/20/2012, 02/14/20 11 HPV Vaccines Aged Out No longer eligi ble based on patient's age to complete this topic Men B Vaccine Aged Out No longer elig ible based on patient's age to complete this topic Pneumococcal Vaccine Aged Out No long er eligible based on patient's age to complete this topic Care Teams Material Planning Analyst Relationship Specialty Start Date End Date Irwin Nicholson MD [address] [place] [address] [place] [address] PCP - General 12/09/17
--- OUTSIDE RECORDS SUMMARY | 2024-08-31 13:51 | XMS_ITS ---
Author Organization [facility] Address [address] [place] [phone] Care Team Providers Care Spiritual Minister Name Role Phone MARGA LEON Unavailable [phone] Allergies Allergen (clinical drug ingredient) Drug/Non Drug Allergy documented on EMR Reaction Allergy Type Onset Date Status Seasonal IC Unknown Drug Allergy Activ e amoxicillin Amoxicillin Unknown Drug Allergy Act marie Results Component Value Reference Range Notes HBsAg Screen-[id number] Reviewed date:07/11/2024 03:43:36 PM Interpretation:Negative Performing Lab:[facility] [place], [address], [address], [place], Phone - [phone], [facility] Notes/Report: HBsAg Screen Negative Negative T pallidum Screening Jameson -[id number] Reviewed date:07/11/2024 03:43:49 PM Interpretation:Negative Performing Lab:[facility] [place], [address], [address], [place], Phone - [phone], Director - [facility] Notes/Report: T pallidum Antibodies Non Reactive Non Reactive HIV Ab/p24 Ag with Reflex-[id number] Reviewed date:07/11/2024 03:43:24 PM Interpretation:Negative Performing Lab:[facility] [place], [address], [address], [place], Phone - [phone], Director - [facility] Notes/Report: HIV Ab/p24 Ag Screen Non Reactive Non Reactive HIV-1/HIV-2 antibodies and HIV-1 p24 antigen were NOT detected. There is no laboratory evidence of HIV infection. HIV Negative HCV Antibody RFX to Quant PC [id number] Reviewed date:07/11/2024 03:44:03 PM Interpretation:Negative Performing Lab:[facility] [place], [address], [address], [place], Phone - [phone], Director - [facility] Notes/Report: HCV Ab Non Reactive Non Reactive Interpretation: Not infected with HCV unless early or acute infection is suspected (which may be delayed in an immunocompromised individual), or other evidence exists to indicate HCV infection. Chlamydia/GC Amplification-[id number] Reviewed date:07/11/2024 03:44:19 PM Interpretation:Negative Performing Lab:[facility], [address], [address], [place], Phone - [phone], Director - [facility] Notes/Report: Chlamydia trachomatis, ALLEN Negative Negative Neisseria gonorrhoeae, ALLEN Negative Negative Ct/GC ALLEN, Rectal-[id number] Reviewed date:07/11/2024 03:44:32 PM Interpretation:Negative Performing Lab:[facility], [address], [address], [place], Phone - [phone], Director - [facility] Notes/Report: C. trachomatis, ALLEN, Rectal Negative Negative N. gonorrhoeae, ALLEN, Rectal Negative Negative Ct/GC ALLEN, Pharyngeal-[id number] Reviewed date:07/11/2024 03:44:42 PM Interpretation:Negative Performing Lab:[facility], [address], [address], [place], Phone - [phone], Director - [facility] Notes/Report: C. trachomatis, ALLEN, Pharyn Negative Negative N. gonorrhoeae, ALLEN, Pharyn Negative Negative REASON FOR VISIT GAH F/U, PrEP F/U Medications Medication SIG (Take, Route, Frequency, Duration) Notes Start Date End Date Status BD Disp Ripley 19G X 1 once a week for 180 days 12/02/2023 Active BD Disp Ripley 25G X 5/8 once a week for 180 days 12/02/2023 Active BD Syringe Luer-Timur 1 ML once weeklly for 180 days 12/02/2023 Active Truvada 200-300 MG 1 tablet Orally Once a day for 90 days MARGA LEON 06/03/2024 10:07:18 AM EDT > extension Rx until July fu visit 12/19/2022 Active Tadalafil 10 MG 1 tablet as needed Orally Once a day for 30 days 08/28/2023 Active Albuterol 2 MG 1 tablet Orally Thre e times a day for 30 day(s) prn Active Lexapro Active Estradiol Valerate 20 MG/ML 0.3 MILLILITER SUBCUTANEOUS ONCE A WEEK for 28 days Active Prometrium 100 MG 1 capsule at bedtime Orally Once a day for 90 days 08/28/2023 Active ZyrTEC Active Social History Sex Assigned At : Social History Observation Description Sex Assigned At Male Vital Signs Blood pressure systolic 130 mm Hg 07/07/20 24 Blood pressure diastolic 90 mm Hg 024 Height 5ft 8in in 07/07/2024 Weight 363.4 lbs 07/07/2024 BMI 55.25 kg/m2 07/07/2024 Encounters Encounter Location Date Provider Diagnosis [facility] [address] [place] [address] [place], [place] [id number] 07/07/2024 MARGA LEON Encounter for screen ing for human immunodeficiency virus [HIV] Z11.4 ; Encounter for HIV pre-exposure prophylaxis Z29.81 ; Other problems related to lifestyle Z72.89 ; Encounter for screening for infections with a predominantly sexual mode of transmission Z11.3 and Encounter for screening for other viral diseases Z11.59 Assessments Encounter Date Diagnosis (ICD Code) Assessment Notes Treatment Notes Treatment Clinical Notes Section Notes 07/07/2024 Encounter for screening for human immunodeficiency virus [HIV] (ICD-10 - Z11.4) Need 2 out of 3 Sections from A-C Section A) Problems (only need one from below) Section B) Data (need at least one of the following categories in this section) Category 1: (Choose three of the following): Order Unique tests Section C) Risk (any one of the following) Prescription drug management (this counts for the whole section) 07/07/2024 Encounter for HIV pre-exposure prophylaxis (ICD-10 - Z29.81) For PrEP labs today. 90 day Rx sent today. Will fu on any concerning labs as needed. Need 2 out of 3 Sections from A-C Section A) Problems (only need one from below) Section B) Data (need at least one of the following categories in this section) Category 1: (Choose three of the following): Order Unique tests Section C) Risk (any one of the following) Prescription drug management (this counts for the whole section) 07/07/2024 Other problems related to lifestyle (ICD-10 - Z72.89) Need 2 out of 3 Sections from A-C Section A) Problems (only need one from below) Section B) Data (need at least one of the following categories in this section) Category 1: (Choose three of the following): Order Unique tests Section C) Risk (any one of the following) Prescription drug management (this counts for the whole section) 07/07/2024 Encounter for screening for infections with a predominantly sexual mode of transmission (ICD-10 - Z11.3) Discussed STI risks, screenings that are available through [facility] and safe sex. For Hep B and C screening today. Clt aware of lab processing times and how to view results on portal and how positive results will be communicated Need 2 out of 3 Sections from A-C Section A) Problems (only need one from below) Section B) Data (need at least one of the following categories in this section) Category 1: (Choose three of the following): Order Unique tests Section C) Risk (any one of the following) Prescription drug management (this counts for the whole section) 07/07/2024 Encounter for screening for other viral diseases (ICD-10 - Z11.59) Need 2 out of 3 Sections from A-C Section A) Problems (only need one from below) Section B) Data (need at least one of the following categories in this section) Category 1: (Choose three of the following): Order Unique tests Section C) Risk (any one of the following) Prescription drug management (this counts for the whole section) 07/07/2024 Other Call to pharmacy- insurance not covering tadafil. Advised clt they can use GoodRx coupon to cover cost. Should be able to ask to fill Rx that was already sent last visit Need 2 out of 3 Sections from A-C Section A) Problems (only need one from below) Section B) Data (need at least one of the following categories in this section) Category 1: (Choose three of the following): Order Unique tests Section C) Risk (any one of the following) Prescription drug management (this counts for the whole section) Plan Of Treatment Medication Medication Name Sig Start Date Stop Date Notes Truvada 200-300 MG 1 tablet Orally Once a day for 90 days 12/19/2022 MARGA LEON 06/03/2024 10:07:18 AM EDT > extension Rx until Jag fu visit Treatment Notes Assessment Notes Encounter for HIV pre-exposure prophylax is For PrEP labs today. 90 day Rx sent today. Will fu on any concerning labs as needed. Encounter for screening for infections with a predominantly sexual mode of transmission Discussed STI risks, screenings that are available through [facility] and safe sex. For Hep B and C screening today. Clt aware of lab processing times and how to view results on portal and how positive results will be communicated Other Call to pharmacy- in surance not covering tadafil. Advised clt they can use GoodRx coupon to cover cost. Should be able to ask to fill Rx that was already sent last visit Next Appt Details Follow Up: 3 Months, Reason: PrEP F/U Provider Name:RAZIA CISNEROS , 09/27/2024 02:00:00 PM, [address] [place] [address], [facility], [place], [phone], Progress Notes * Miki GREENDOB: [birth year] (28 yo M)Acc No.[id number]:07/07/2024 Gender affirming hormones fo llow up visit Patient:?Miki GREEN Provider:?MARGA LEON :1995???Age:28 Y???Sex:Male(T) Date:07/07/2024 Address: [address] [place], [phone] Subjective: * Chief Complaints: * ???GAH F/UPrEP F/U * HPI: ???Visit Narrative:?Clt here for Prep follow up,?has had 1 new partner since last visit. Visit initially scheduled for both PrEP and GAHT. Clt has since been able to get in with [facility] and they will be managing GAHT going forward. Clt would like to continue PrEP fu with us. Clt also with concerns for not being able to get refills for Cialas. Rx was sent for generic back at last visit in Apr. Will have staff call pharmacy to clarify what the issue is Clt with no concerns regarding PrEP fu. No Hep B immunity. Clt reports had booster at age 21 yrs. May not be seroconverting. Cr due 03/2025. ?Reason for the visit:?Prep follow up.?Current form of control:?Condoms most of the time.?.?Presenting Symptoms:?Redness on chest, has some itching in the back of the neck..?Last date of UPI:?A week ago condom broke.?.? * ROS:?General/Constitutional:?Denies?Chills.?Denies?Fatigue.?Denies?Fever.?Denies?Headache.?Denies?Night sweats.?Denies?Weight loss.?Allergy/Immunology:?Denies?Enlarged Lymph Nodes.?Gastrointestinal:?Denies?Diarrhea.?Denies?Nausea.?Denies?Vomiting.?Denies?Weight loss.?Musculoskeletal:?Denies?Muscle aches.?Denies?Painful joints.?Skin:?Denies?Rash.? * Medical History:? * Surgical History:?knee surg tonsil and adenoid removal * Hospitalization/Major Diagno stic Procedure:?Denies Past Hospitalization * Family History:? heart dx/HBP and mental health issues fathers side, mental health issues mothers side Heart disease paternal uncle and PGM. * Social History:?Food Access:?Food Access?The Client's current access to food is?Secure Food Access ???Housing:?Housing?The client's current living situation is:?stable housing ???Reproductive Life Plan:?Reproductive Life Plan?Do you want to have children??Not sure ???Sexual History:?Sexual History?Sexual History Reviewed:?Partners, Practices, Protection/Past STIs, Prevention of , ___ ?Currently sexually active??Yes ?Sexually active with:?Assigned Female at , Assigned Male at ?Number of assigned female at partners?1 ?Number of assigned male at partners?2 ?Your sexual activities include:?anal intercourse, oral intercourse, vaginal intercourse ?Do you use condoms??Yes ?Condoms are used:?most of the time ?Date of last unprotected intercourse:?05/29/2024 orala year ago ?Number of partners in past 3 months:?5 ?Number of partners in past year:?11 ???PrEP for HIV:?PrEP for HIV?Is the client interested in beginning/continuing PrEP for HIV??Yes ?Do you currently have any HIV+ partners??No ?In the past 6 months, have you had any HIV+ partners??No ?Are you a commercial sex worker??No ???Relationships:?Relationships?Has the client experienced any of the following:?Reproductive Coercion, Harmful Relationships, Sexual Coercion, Exchanged Sex for. . . ?Emotionally?Yes ?Currently:?No ?Physically:?Yes ?Currently:?No ?Sexually:?Yes clt has a therapist ?Currently?No ?Been forced or pressured into sexual activities??Yes ?Currently:?No ?drugs, intermediate, safety, other.?Yes ???Human Trafficking:?Human Trafficking?Experienced:?No ???Tobacco Use:?Tobacco Use?Do you/have you used tobacco??Yes, currently ?How long have you been smoking (years)??Nocotine ???Drugs/Alcohol:?Drug/Alcohol Use?Do you or have you used drugs??Yes, currently ?By what route are you taking drugs? Please check all that apply:?Smoking, Intranasally (snorting), Ingesting (eating) ?Which drug(s) do you smoke??Marijuana ?When did you last use??-2023 ?Which drug(s) do you use intranasally (snort)??Crack/cocaine No longer does cocaine. ?When did you last use??04/30/2024 ?Do you share equpiment??No ?Have you been tested for Hepatitis C before??Yes ?Do you know about [employer] Disposal Program??Yes ?Which drug(s) do you ingest (eat)??Other (please specify in notes) Xochilt ?When did you last use??Recently took a xochilt ?Do you or have you used alcohol??Yes, currently Binge drinks at times ???Counseling Provided:?Counseling Provided?Please indicate the length of time, in minutes, that counseling was provided.?5 ?Counseling Was Provided By:?isabelacor * Medications:?TakingLexapro E stradiol Valerate 20 MG/ML Oil 0.3 MILLILITER SUBCUTANEOUS ONCE A WEEK Prometrium 100 MG Capsule 1 capsule at bedtime Orally Once a day ZyrTEC Albuterol 2 MG Tablet 1 tablet Orally Three times a day , Notes to Pharmacist: prnBD Disp Ripley 19G X 1 Miscellaneous once a week BD Disp Ripley 25G X 5/8 Miscellaneous once a week BD Syringe Luer-Timur 1 ML Miscellaneous once weeklly Tadalafil 10 MG Tablet 1 tablet as needed Orally Once a day Truvada 200-300 MG Tablet 1 tablet Orally Once a day , Notes to Pharmacist: MARGA LEON 06/03/2024 10:07:18 AM EDT > extension Rx until July visitTaking Lexapro Taking Estradiol Valerate 20 MG/ML Oil 0.3 MILLILITER SUBCUTANEOUS ONCE A WEEK Taking Prometrium 100 MG Capsule 1 capsule at bedtime Orally Once a day Taking ZyrTEC Taking Albuterol 2 MG Tablet 1 tablet Orally Three times a day , Notes to Pharmacist: prnTaking BD Disp Ripley 19G X 1 Miscellaneous once a week Taking BD Disp Ripley 25G X 5/8 Miscellaneous once a week Taking BD Syringe Luer-Timur 1 ML Miscellaneous once weeklly Taking Tadalafil 10 MG Tablet 1 tablet as needed Orally Once a day Taking Truvada 200-300 MG Tablet 1 tablet Orally Once a day , Notes to Pharmacist: MARGA LEON 06/03/2024 10:07:18 AM EDT > extension Rx until July visit * Allergies:?AmoxicillinSeason al ICno[Allergies Verified] Objective: * Vitals:?BP:130/90mm Hg, Ht: 5ft 8in, Wt:363.4lbs, BMI:55.25Index, Ht-cm: 172.72, Wt-k.84. * Examination: ???General Examination: ?GENERAL APPEARANCE:?pleasant, in no acute distress.?NEUROLOGIC:?alert and oriented.? Assessment: * Assessment: 1.?Encounter for HIV pre-exp osure prophylaxis - Z29.81 (Primary)???2.?Encounter for screening for human immunodeficiency virus [HIV] - Z11.4???3.?Other problems related to lifestyle - Z72.89???4.?Encounter for screening for infections with a predominantly sexual mode of transmission - Z11.3???5.?Encounter for screening for other viral diseases - Z11.59??? Need 2 out of 3 Sections fro m A-C Section A) Problems (only need one from below) Section B) Data (need at least one of the following categories in this section) Category 1: (Choose three of the following): Order Unique tests Section C) Risk (any one of the following) Prescription drug management (this counts for the whole section) Plan: * Treatment: 2.?Encounter for screening f or human immunodeficiency virus [HIV]?LAB: HIV Ab/p24 Ag with Reflex-[id number] (Collection Date & Time - 07/07/2024 10:16 AM) ? Value Reference Range ?HIV Ab/p24 Ag Screen Non Reactive No n Reactive - * This lab was reviewed by NERIS WASHINGTON on 07/11/2024 at 15:43 PM EST 3.?Encounter for screening for infections with a predominantly sexual mode of transmission?LAB: T pallidum Screening Jameson-[id number] (Collection Date & Time - 07/07/2024 10:16 AM)* ? Value Reference Range ?T pallidum Antibodies Non Reactive N on Reactive - * This lab was reviewed by NERIS WASHINGTON on 07/11/2024 at 15:43 PM EST ?LAB: Chlamydia/GC Amplification-[id number] (Collection Date & Time - 07/07/2024 10:16 AM)* ? Value Reference Range ?Chlamydia trachomatis, ALLEN Negative Negative - * ?Neisseria gonorrhoeae, ALLEN Negative Negative - * This lab was reviewed by NERIS WASHINGTON on 07/11/2024 at 15:44 PM EST ?LAB: Ct/GC ALLEN, Rectal-[id number] (Collection Date & Time - 07/07/2024 10:16 AM)* ? Value Reference Range ?C. trachomatis, ALLEN, Rectal Negative Negative - * ?N. gonorrhoeae, ALLEN, Rectal Negative Negative - * This lab was reviewed by NERIS WASHINGTON on 07/11/2024 at 15:44 PM EST ?LAB: Ct/GC ALLEN, Pharyngeal-[id number] (Collection Date & Time - 07/07/2024 10:16 AM)* ? Value Reference Range ?C. trachomatis, ALLEN, Pharyn Negative Negative - * ?N. gonorrhoeae, ALLEN, Pharyn Negative Negative - * This lab was reviewed by NERIS WASHINGTON on 07/11/2024 at 15:44 PM EST Notes: Discussed STI risks, screenings that are available through [facility] and safe sex. For Hep B and C screening today. Clt aware of lab processing times and how to view results on portal and how positive results will be communicated ??4.?Encounter for screening for other viral diseases?LAB: HBsAg Screen-[id number] (Collection Date & Time - 07/07/2024 10:16 AM)* ? Value Reference Range ?HBsAg Screen Negative Negative - * This lab was reviewed by NERIS WASHINGTON on 07/11/2024 at 15:43 PM EST ?LAB: HCV Antibody RFX to Quant PCR-[id number] (Collection Date & Time - 07/07/2024 10:16 AM)* ? Value Reference Range ?HCV Ab Non Reactive Non Reactive - * This lab was reviewed by NERIS WASHINGTON on 07/11/2024 at 15:44 PM EST 5.?Others? Notes: Call to pharmacy- insurance not covering tadafil. Advised clt they can use GoodRx coupon to cover cost. Should be able to ask to fill Rx that was already sent last visit?? * Procedure Codes:? * Follow Up:?3 Months (Reason: PrEP F/U) * Billing Information: * Visit Code:? 72447 Existing - Medium Complexity (IN USE). * Procedure Codes:? * Sign off status: Completed true * Provider:CIELO LEON Date:?07/07/2024 Generated for Prem [place]/eTransmitting on:?08/31/2024 01:51 PM EST History and Physical Notes * HPI (History of Present Illness) Category Sub-Category Detail Notes Category Not es Visit Narrative Reason for the visit: Prep follow up Current form of control: Condoms m ost of the time. Presenting Symptoms: Redness on chest, h as some itching in the back of the neck. Last date of UPI: A week ago condom br alexis. Examination Category Sub-Category Detail Notes Category Not es General Examination GENERAL APPEARANCE: pleasant, in n o acute distress NEUROLOGIC: alert and oriented
--- OUTSIDE RECORDS SUMMARY | 2024-08-31 13:51 | XMS_ITS | Encounter Summary ---
Author Organization [facility] Address [address] [place] [phone] Phone Care Team Providers Care Accounts Payable Manager Name Role Phone Irwin Nicholson MD Primary Care Provider Encounter Details Date Type Department Care Team (Late st Contact Info) Description 02/13/2011 Conversion Encounter [facility] [address] [place] [address] Social History Tobacco Use Types Packs/Day Years Used Date Smoking Tobacco: Never Assessed Sex and Gender Information Value Date Recorded Sex Assigned at Not on file Legal Sex Male 6:42 PM EDT Gender Identity Not on file Sexual Orientation Not on file documented as of this encounter Plan of Treatment Not on file documented as of this encounter Visit Diagnoses Not on filedocumented in this encounter Care Teams Accounts Payable Manager Relationship Specialty Start Date End Date Irwin Nicholson MD [facility] [place] [address] PCP - General 12/09/17 documented as of this encounter
== END 2024-08-31 12:20 | disposition home or self-care (01) ==
PROVIDERS: PCP Nurse Practitioner Family; Visit Provider Physician Assistant
DX: J20.8 Acute bronchitis due to other specified organisms (principal); B96.89 Other specified bacterial agents as the cause of diseases classified elsewhere

== ENCOUNTER → 2024-08-31 11:25 | Outpatient (BNVA) | payer OTHER, SELFPAY | PROVIDERS: PCP Nurse Practitioner Family ==

== ENCOUNTER 2024-09-05 08:52 | Outpatient (AMB) | payer OTHER, SELFPAY ==
--- NOTE | 2024-09-05 09:04 | A.OFFPC_ITS ---
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 per policy Accompanied by: Self / Same As Patient Allergies amoxicillin Allergy (Verified 09/05/24 09:34) Rash Medication List - Last Reconciled 09/05/24 by Raisa Rocha PA-C albuterol sulfate 90 mcg/actuation 2 puffs inhalation Q6H PRN cetirizine (Zyrtec) 10 mg PO DAILY PRN emtricitabine-tenofovir (TDF) 200-300 mg 1 tab PO DAILY escitalopram oxalate 5 mg PO DAILY estradiol mg PO tadalafil 10 mg PO DAILY PRN Tobacco use date assessed: 09/05/24 Dental Screening Dental Screen Date: 09/05/24 Did you have a dental visit in the last 12 months?: Yes Did you have a dental problem in the last 6 months where you did not have access to dental care?: No Was dental information given to patient?: Patient has dentist HPI MICHELLE Mallory Astudillo HPI Details 29-year-old born male transitioning to f michelle with past medical history obstructive sleep apnea, morbid obesity, depression and anxiety and gender dysphoria last seen by nurse practitioner 07/2023 coming in for transfer of care.? In review of the notes, patient was seen in walk-in clinic 08/31/2024 diagnosed with bronchitis and given azithromycin. Patient follows with [facility] endocrinology for management of hormonal treatment. She receives her prep through [facility] and follows with [facility] for anxiety and depression. She does have 1 concern today she noticed that since discontinuing her progesterone she has had a lower sex drive. [facility] Medical History Body aches Cough Viral illness Surgical History H/O adenoidectomy H/O: knee surgery Hx of tonsillectomy Family History Mother No problems noted. Maternal Grandmother Diabetes Father No problems noted. 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 1. Little interest or pleasure in doing things: not at all 2. Feeling down, depressed, or hopeless: not at all 3. Trouble falling or staying asleep, or sleeping too much: not at all 4. Feeling tired or having little energy: not at all 5. Poor appetite or overeating: not at all 6. Feeling bad about yourself - or that you are a failure or have let yourself or your family down: not at all 7. Trouble concentrating on things, such as reading the newspaper or watching television: not at all 8. Moving or speaking so slowly that other people could have noticed. Or the opposite - being so fidgety or restless that you have been moving around a lot m ore than usual: not at all 9. Thoughts that you would be better off or of hurting yourself in some way: not at all Total score: 0 Depression Screening Interpretation: Negative Depression Screening Done: Yes Source: Developed by Drs. Isaak Ordoñez, Clare Carrillo, Chema Smith and colleagues, with an educational nelson from [employer]. Thrive Questionnaire Date Thrive assessed: 09/05/24 I am a: Patient What is your living situation today?: I have a steady place to live Within the past 12 months, did the food you bought not last and you didn't have the money to get more?: Never true Within the past 12 months, did you worry whether your food would run out before you got money to buy more?: Never true Do you have trouble paying for medicines?: No Do you have trouble getting transportation to medical appointments?: No Do you have trouble paying your heating and electricity bill?: No Do you have trouble taking care of your child, family member or friend?: No Do you have trouble with day-to-day activities such as bathing, preparing meals, shopping, managing finances, etc.?: No Are you currently unemployed and looking for a job?: No Are you interested in more education?: No Please select the resources that you would like help with: None Currently or been in a relationship where the following occur: No concerns reported THRIVE Score: 0 AUDIT C Alcohol Use Questionnaire (AUDIT-C) 1. How often do you have a drink containing alcohol?: Monthly or less 2. How many drinks containing alcohol do you have on a typical day when you are drinking?: 3 or 4 3. How often do you have six or more drinks on one occasion?: Less than monthly Total Score: 3 MAYTE-7 AMB Questionnaire MAYTE-7 Date MAYTE - 7 assessed: 09/05/24 (pt seeing therapist ) Feeling nervous, anxious, or on edge: 1 = Several days Not being able to stop or control worryin = Not at all Worrying too much about different things: 0 = Not at all Trouble relaxin = More than half the days Being so restless that it is hard to sit still: 0 = Not at all Becoming easily annoyed or irritable: 2 = More than half the days Feeling afraid as if something awful might happen: 2 = More than half the days Total MAYTE-7 score (0-4 normal; 5-9 mild; 10-14 moderate; 15-21 severe): 7 Source: Developed by Drs. Isaak Ordoñez, Clare Carrillo, Chema Smith and colleagues, with an educational nelson from [employer]. MAYTE-7 Assessment Billing MAYTE-7 Assessment Tool: MAYTE-7 Assessment 91849 Review of Systems Const Denies body aches, Denies chills, Denies fever(s), Denies headache(s) and Denies poor appetite Eyes Reports no additional complaints ENT Denies dizziness and Denies headache(s) Card Denies chest pain, Denies syncope, Denies lightheadedness and Denies dyspnea Resp Denies cough and Denies dyspnea GI Denies abdominal pain, Denies constipation, Denies diarrhea, Denies nausea and Denies vomiting Reports no additional complaints Musc Reports no additional complaints and Denies abnormal gait Skin/Breast Reports system reviewed and no additional complaints, except as documented Neuro Denies abnormal gait, Denies dizziness, Denies syncope and Denies headache(s) Psych Reports no additional complaints Physical exam (Primary Care) Vital Signs: Last Vital Signs Temp 97.1 F 09/05/24 09:11 Pulse 85 09/05/24 09:11 BP 132/74 09/05/24 09:11 Pulse Ox 100 09/05/24 09:11 Oxygen Delivery Method Room Air 09/05/24 09:11 BMI result Body Mass Index 53.5 BMI Assessment/Plan discussion: High BMI High, discussed plan: lifestyle, dietary and physical activity Tobacco/Smoking Status: Tobacco use Status Tobacco use date assessed 09/05/24 09/05/24 09:09 Patient Tobacco Use Status Former Tobacco user 09/05/24 09:17 e-Cigarette/Vaping Use Currently Using 09/05/24 09:20 Are you ready to quit: No Tobacco cessation counseling provided: Yes Items discussed: Nicotine replacement CPT code: Less than 3 minutes PHQ-9: PHQ-9 Score PHQ-9: Total score 0 09/05/24 09:33 Depression Screening Interpretation: Negative Thrive Assessment: Date of Thrive Assessment Date Thrive assessed 09/05/24 09/05/24 09:09 Currently or been in a relationship where the following occur: No concerns reported Const General: cooperative, healthy appearing, comfortable and no acute distress Orientation/consciousness: patient oriented x3 HENMT Head: Yes normocephalic Ears: hearing grossly normal bilaterally General nose exam: Normal external nose present Eyes General: appearance normal, both eyes and all related structures Conjunctivae: conjunctivae normal Neck Neck: Yes full ROM and Yes no lymphadenopathy Resp Effort & Inspection: normal respiratory effort Auscultation: clear to auscultation bilaterally, no crackles, no rales, no rhon chi and no wheezes Cardio Rate: regular rate Rhythm: regular rhythm Skin General skin exam: no rashes or lesions noted Neuro General: patient oriented x3 Gait exam (Neuro): Normal gait present Extrem General: Yes normal to inspection, Yes full ROM and No edema Psych Affect: normal affect Attitude: cooperative Insight: Good insight present (Psych) Judgement: Good judgement present (Psych) Coding Level of Care Code Est Pt Level 4 (25025) Diagnoses Gender dysphoria F64.9 Morbid obesity with BMI of 45.0-49.9, adult E66.01; Z68.42 Depression with anxiety F41.8 MARY (obstructive sleep apnea) G47.33 On pre-exposure prophylaxis for HIV Z79.899 Screening for hypercholesterolemia Z13. Mild intermittent asthma without complication J45.20 Asthma severity: mild Asthma persistence: intermittent Asthma complication type: uncomplicated Additional Codes MAYTE-7 Assessment Billing - MAYTE-7 Assessment Tool: MAYTE-7 Assessment 94346 ([id number]) Assessment & Plan Assessment & Plan (1) Gender dysphoria: Code(s): F64.9 - Gender identity disorder, unspecified Category: Medical Plan: Currently following with [facility] endocrinology for management of hormonal treatment. (2) Morbid obesity with BMI of 45.0-49.9, adult: Code(s): E66.01 - Morbid (severe) obesity due to excess calories; Z68.42 - Body mass index [BMI] 45.0-49.9, adult Category: Medical Plan: Healthy diet and regular exercise is encouraged. Discussed with patient importance of dietary changes and exercise. (3) Depression with anxiety: Comment: [facility] Code(s): F41.8 - Other specified anxiety disorders Category: Medical Plan: Currently following with [facility] has a counselor and a therapist and feels well managed on the escitalopram. (4) MARY (obstructive sleep apnea): Comment: on CPAP Code(s): G47.33 - Obstructive sleep apnea (adult) (pediatric) Category: Medical Plan: Uses CPAP faithfully at least 4 hours a night and benefits from this therapy. (5) On pre-exposure prophylaxis for HIV: Code(s): Z79.899 - Other manager terminal (current) drug therapy Category: Medical Plan: Currently on Biktarvy which she receives through [facility] (6) Screening for hypercholesterolemia: Code(s): Z13.220 - Encounter for screening for lipoid disorders Category: Medical Plan: Ordered for cholesterol labs for further evaluation. (7) Asthma: Code(s): J45.909 - Unspecified asthma, uncomplicated Category: Medical Qualifiers: Asthma severity: mild Asthma persistence: intermittent Asthma complication type: uncomplicated Qualified Code(s): J45.20 - Mild intermittent asthma, uncomplicated Plan: Asthma currently controlled on present medications. Continue on albuterol as needed. Avoid triggers such as allergies. Plan This note was constructed using voice recognition software. While every effort has been made to ensure accuracy and compounding and finishing supervisor, still areas may have been in cluded sometimes these areas may affect the content or meeting of the given symptoms. Total time spent caring for the patient today was thirty minutes. This includes time spent before the visit reviewing the chart, time spent during the visit, and time spent after the visit and documentation. Orders: Orders Comprehensive Met. Panel Today Z00.00 - Encounter for general adult medical examination without abnormal findings Free T4 (Free Thyroxine) Today Z00.00 - Encounter for general adult medical examination without abnormal findings Vitamin B12 and Folate Today Z00.00 - Encounter for general adult medical examination without abnormal findings Complete Blood Count Auto Diff Today Z00.00 - Encounter for general adult medical examination without abnormal findings TSH reflex Free T4 Today Z00.00 - Encounter for general adult medical examination without abnormal findings Vitamin D 25-OH Total Today Z00.00 - Encounter for general adult medical exa mination without abnormal findings Lipid Panel Today Z13.220 - Encounter for screening for lipoid disorders Medications: Refilled albuterol sulfate 90 mcg/actuation 2 puffs inhalation Q6H PRN 8.5 grams 2RF shortness of breath or wheezing R09.82 - Postnasal drip
[2024-09-05 09:11] VITALS: BP 132/74; PULSE 85; TEMP 36.2; O2SAT 100; BMI 53.5
--- OUTSIDE RECORDS SUMMARY | 2024-09-05 09:12 | XMS_ITS | Data Portability ---
Author Organization [facility] [address] Address [address] [place] [address] Assessment No assessment recorded. Plan of Treatment Reminders Order Date Submit Date Provider Last Modified By Organization Details Last Modified Time Details Appointments None recorded. Lab rapid SARS CoV 2 Ag, QL IA, respiratory specimen 2022 023 [facility], [address] [place] [address], [id number], 14:01:30 Referral None recorded. Procedures None recorded. Surgeries None recorded. Imaging None recorded. Medication Orders cefdinir 300 mg capsule 2022 023 [id number], [address], [place], [id number], 3 20:15:48 prednisone 20 mg tablet 2022 023 [facility] #[id number], [address], [place], [id number], 3 14:05:32 Allergy Relief (fluticason e) 50 mcg/actuati on nasal spray,suspe nsion 2022 023 [facility] #[id number], [address], [place], [id number], 3 14:05:32 Patient TargetsNo targets recorded. Patient Instructions Encounter Date Encounter Id Patient Instructions Last Modified By Organization Details Last Modified Time 09/27/2022 [id number] coronavirus (covid-19): care instructions Not available 09/27/2022 [...] taking a prescription pain medicine, take an acdp-rzr-wbbleyn medicine, such as acetaminophen (Tylenol), ibuprofen (Advil, [...] Unknown Analyte Normal =Negat marie Not Available _[address], [id number], 09/27/2022 13:26:02 09/27/1909/27/2022 rapid SARS CoV 2 Ag, QL IA, respi rator y speci men Unknown Analyte negati ve Not Available [address] [place] [address], [id number], 09/27/2022 13:26:02 Result Notes None recorded. Problems Name Problem SNOMED Code Status Onset Date Resolution Date Notes Provider Name and Address Organization Details Recorded Time Anxiety 19808458 Active 023 [facility]I Candelario [facility] 3 13:29:22 Depressive disorder 24584485 Active 023 GEMINI Candelario [facility] 3 13:29:29 Problem Notes None recorded. Procedures Surgical History Date Name Laterality Status Provider Name and Address Organization Details Recorded Time tonsillectomy completed Annette Mccormick PA - [facility] 09/27/2022 13:31:54 repair of meniscus completed Annette Mccormick PA - [facility] 09/27/2022 13:32:13 Imaging Results None recorded. Procedure Notes None recorded. Medical Equipment None Reported. Allergies Allergen ID Allergen Name Allergen Category Reaction Reaction Severity Criticality Documentation Date Start Date Code Code System Note Provider Name and Address Organization Details Recorded Time amoxicill in medicatio n rash Not available Not available 09/27/2022 723 [facility] Annette Mccormick miguel PA - [facility] 3 13:27:37 Medications Name Sig Start Date Stop [...] ) 50 mcg/actuatio n nasal spray,suspen imelda [place] 1 spray twice a day by intranasal route as directed for 30 days. 2022 active Not Available Not Available Not Avai lable albuterol 90 mcg-budesoni de 80 mcg/actuatio n HFA aerosol inhaler Inhale by inhalation route. active Not Available Not Available No t Available Vitals Date Recorded Body height Body mass index (BMI) Body weight Pain severity - 0-10 verbal numeric rating [Score] - Reported Oxygen saturation Oxygen saturation in Arterial blood by Pulse oximetry Heart rate Respiratory rate Body temperature Systolic blood pressure Diastolic blood pressure Provider Name and Address Organization Details Last Updated DateTime 3 175.26 cm 48 kg/m2 738651. 52 g 2 100 % 100 % 68 /min 18 /min 97.8 [degF] 129 mm[Hg] 89 mm[Hg] Annette Mccormick PA - [facility] 3 13:34:12 Social History Question Answer Notes LastModified by Organizat ion Details LastModified Time Tobacco Smoking Status Former Smoker Annette Bennettshar rivera, PA - [facility] 09/27/2022 13:31:43 What [...] Details Recorded Time IPV 0 completed Annette Philippejaron rivera, PA - [facility] 09/27/2022 13:27:21 MMR 6 completed Annette Jace null, PA - [facility] 09/27/2022 13:27:21 MMR 0 completed Annette Jace null, PA - [facility] 09/27/2022 13:27:21 COVID-19, mRNA, LNP-S, PF, 30 mcg/0.3 mL dose 1 completed Annette Jace null, PA - [facility] 09/27/2022 13:27:21 [...] null, PA - [facility] 09/27/2022 13:27:21 PLgT-Awb-PSA 6 completed Annette Monfette null, PA - [facility] 09/27/2022 13:27:21 MKsT-Iar-MOQ 7 completed Annette Monfette null, PA - [facility] 09/27/2022 13:27:21 JKcI-Lww-VFL 6 completed Annette Monfette null, PA - [facility] 09/27/2022 13:27:21 BEhQ-Gwj-JNM 6 completed Annetet Monfette null, PA - [facility] 09/27/2022 [...] Monfette null, PA - [facility] 09/27/2022 13:27:22 DTaP 7 completed Annette Monfette null, PA - [facility] 09/27/2022 13:27:22 DTaP 6 completed Annette Monfette null, PA - [facility] 09/27/2022 13:27:22 DTaP 0 completed Annette Monfette null, PA - [facility] 09/27/2022 13:27:22 Past Encounters Encounter ID Performer Location Encounter Start Date Encounter Closed Date Diagnosis/Indication Diagnosis SNOMED-CT Code Diagnosis ICD10 Code Diagnosis Note [id number] [address] [address] [place] [address] 03/08/2022 08:32:11 03/08/2022 11:18:16 [id number] [address] Blackvt [address]or [address] [place] [address] 04/15/2018 13:06:38 04/15/2018 14:00:54 [id number] [address] [address] 04/03/2022 08:36:05 04/03/2022 12:38:48 [id number] [address] [place] [address] 08/13/2019 16:29:07 08/13/2019 17:04:35 [id number] [address] [place] [address] 03/27/2021 11:40:54 03/27/2021 13:38:00 [id number] Miguel Newsome NP [address] [place] [address] 09/27/2022 10:47:12 09/27/2022 14:11:47 Exposure to SARS-CoV-2 068296430 Z20.822 Acute left otitis media 884166864 H66.92 Health Concerns Section Related Observation LastModified by Organization Detai ls LastModified Time None Recorded Concern Status LastModified by Organization Details LastModified Time None Recorded Advance Directives Directive None Recorded Payers Encounter Date Sequence Insurance Name Policy Number Policy Vick Covered Member ID Vick Member ID Guarantor Name 09/27/2022 1 [facility] [id number] Miki Lai [id number] Miki Lai 09/27/2022 1 [facility] [place] (PPO) [id number] Miki Lai [id number] Miki Lai Notes Date Note Type [...] Newsome NP [address] [place], [address], PA - [facility] 09/27/2022 15:10:19
--- OUTSIDE RECORDS SUMMARY | 2024-09-05 09:12 | XMS_ITS | Encounter Summary ---
Author Organization [facility] Address [address] [place] [address] Phone Care Team Providers Care Medical Records Manager Name Role Phone Irwin Nicholson MD Primary Care Provider [phone] Encounter Details Date Type Department Care Team (Late st Contact Info) Description 02/13/2011 Conversion Encounter [facility] [address] [place] [address] Social History Tobacco Use Types Packs/Day Years [...] on filedocumented in this encounter Care Teams Medical Records Manager Relationship Specialty Start Date End Date Irwin Nicholson MD [facility] [place] [address] PCP - General 12/09/17 documented as of this encounter
--- OUTSIDE RECORDS SUMMARY | 2024-09-05 09:12 | XMS_ITS | Clinical Summary ---
Author Organization [facility] Address [address] [place] [address] Phone Care Team Providers Care Cad Developer Name Role Phone Irwin Nicholson MD Primary Care Provider [phone] Immunizations Name Administration Dates Next Due DTaP [...] age to complete this topic Care Teams Cad Developer Relationship Specialty Start Date End Date Irwin Nicholson MD [address] [place] [address] [place] [address] PCP - General 12/09/17
== END 2024-09-05 09:54 | disposition home or self-care (01) ==
PROVIDERS: PCP Nurse Practitioner Family
DX: F64.9 Gender identity disorder, unspecified (principal); E66.01 Morbid (severe) obesity due to excess calories; Z68.42 Body mass index [BMI] 45.0-49.9, adult; F41.8 Other specified anxiety disorders; G47.33 Obstructive sleep apnea (adult) (pediatric); Z79.899 Other long term (current) drug therapy; Z13.220 Encounter for screening for lipoid disorders; J45.20 Mild intermittent asthma, uncomplicated

== ENCOUNTER → 2024-09-05 08:52 | Outpatient (BNVA) | payer OTHER, SELFPAY | PROVIDERS: PCP Nurse Practitioner Family | DX: F64.9 Gender identity disorder, unspecified (principal); E66.01 Morbid (severe) obesity due to excess calories; Z68.42 Body mass index [BMI] 45.0-49.9, adult; F41.8 Other specified anxiety disorders; G47.33 Obstructive sleep apnea (adult) (pediatric); J45.20 Mild intermittent asthma, uncomplicated; Z79.899 Other long term (current) drug therapy; Z99.89 Dependence on other enabling machines and devices | CPT/HCPCS: 96127 ==

== ENCOUNTER 2024-11-09 09:06 | Outpatient (AMB) | payer OTHER, SELFPAY ==
--- NOTE | 2024-11-09 09:09 | MHC.PC.OV ---
Vital Signs 11/09/24 09:12 Height 5 ft 9 in Weight 370 lb 2.498 oz BMI 54.7 BP 132/90 H Blood Pressure Location Lt brachial Position Sitting Pulse 102 H Pulse Source Pulse Oximeter Temp 97.3 F Temp Source Temporal Artery Scan Pulse Oximetry (%) 99 Oxygen Delivery Method Room Air Intake Visit Reasons: Return to work paperwork? Intake Note: Patient is here to follow up on Return to work paperwork. 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 HPI Details 29-year-old male transitioning to female with past medical history of obstructive sleep apnea, morbid obesity, depression, anxiety and gender dysphoria last seen 09/2024 coming in for return to work paperwork.? Presenting with the need for completion of return to work documentation. Occupational stress has been a significant concern, with the patient reporting a hostile work environment and perceived targeting by his company. He has been off work since September due to mental health concerns and the political climate. He opted for personal leave, maintaining his insurance after being presented with dismissal or leave as options due to absences. Patient reports previous stability on escitalopram for anxiety and depression. There is a requirement to obtain psychiatric notes from [facility] for [facility] paperwork addressing intermittent leave. Seeing [facility] this week and awaiting assignment to new med provider through their practice. [facility] Medical History Body aches Cough Viral illness Surgical History H/O adenoidectomy H/O: knee surgery Hx of tonsillectomy Family History Mother No problems noted. Maternal Grandmother Diabetes Father No problems noted. 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 Isaak Ordoñez, Clare Carrillo, Chema Smith and colleagues, with an educational nelson from [employer]. Review of Systems Const Denies body aches, Denies chills, Denies fever(s), Denies headache(s) and Denies poor appetite Eyes Reports no additional complaints ENT Denies headache(s) Card Denies chest pain and Denies dyspnea Resp Denies dyspnea GI Denies abdominal pain, Denies nausea and Denies vomiting Reports no additional complaints Musc Reports no additional complaints and Denies abnormal gait Skin/Breast Reports system reviewed and no additional complaints, except as documented Neuro Denies abnormal gait and Denies headache(s) Psych Reports no additional complaints Physical exam (Primary Care) Vital Signs: Last Vital Signs Temp 97.3 F 11/09/24 09:12 Pulse 102 H 11/09/24 09:12 BP 132/90 H 11/09/24 09:12 Pulse Ox 99 11/09/24 09:12 Oxygen Delivery Method Room Air 11/09/24 09:12 BMI result Body Mass Index 54.7 Tobacco/Smoking Status: Tobacco use Status Tobacco use date assessed 11/09/24 11/09/24 09:15 Patient Tobacco Use Status Former Tobacco user 11/09/24 09:10 e-Cigarette/Vaping Use Currently Using 11/09/24 09:10 Thrive Assessment: Date of Thrive Assessment Date Thrive assessed 09/05/24 11/09/24 09:10 Const General: cooperative, healthy appearing, comfortable and no acute distress Orientation/consciousness: patient oriented x3 HENMT Head: Yes normocephalic Ears: hearing grossly normal bilaterally General nose exam: Normal external nose present Eyes General: appearance normal, both eyes and all related structures Conjunctivae: conjunctivae normal Neck Neck: Yes full ROM and Yes no lymphadenopathy Resp Effort & Inspection: normal respiratory effort Auscultation: clear to auscultation bilaterally, no crackles, no rales, no rhonchi and no wheezes Cardio Rate: regular rate Rhythm: regular rhythm Skin General skin exam: no rashes or lesions noted Neuro General: patient oriented x3 Gait exam (Neuro): Normal gait present Extrem General: Yes normal to inspection, Yes full ROM and No edema Psych Affect: normal affect Attitude: cooperative Insight: Good insight present (Psych) Judgement: Good judgement present (Psych) Coding Level of Care Code Est Pt Level 3 (58840) Diagnoses Gender dysphoria F64.9 Depression with anxiety F41.8 Assessment & Plan Assessment & Plan (1) Gender dysphoria: Code(s): F64.9 - Gender identity disorder, unspecified Category: Medical Plan: Currently following with [facility] endocrinology for management of hormonal treatment. (2) Depression with anxiety: Comment: [facility] Code(s): F41.8 - Other specified anxiety disorders Category: Medical Plan: Currently following with [facility] has a counselor and a therapist and feels well managed on the escitalopram. I reviewed the patient's records and discussed the necessity of obtaining psychiatric notes from [facility] to complete the required return to work documentation. The patient is encouraged to maintain communication with psychiatric providers to expedite this process, ensuring that all documentation is accurate and supports their ability to return to work. Addressing occupational stress and maintaining medication adherence, along with providing the necessary documentation, are crucial for the patient's return to his job. Return to work form completed today their are no physical barriers that would keep them from performing their job duties. Still undergoing treatment for mental health. Plan This note was constructed using voice recognition software. While every effort has been made to ensure accuracy and fishery division chief, still areas may have been included sometimes these areas may affect the content or meeting of the given symptoms. Total time spent caring for the patient today was 20 minutes. This includes time spent before the visit reviewing the chart, time spent during the visit, and time spent after the visit and documentation. Patient was informed and verbally consented to the use of an ambient scribe for clinic note documentation during this visit.
[2024-11-09 09:12] VITALS: BP 132/90; PULSE 102; TEMP 36.3; O2SAT 99; BMI 54.7
--- OUTSIDE RECORDS SUMMARY | 2024-11-09 09:37 | XMS_ITS ---
Author Organization [facility] Address [address] [place] [phone] Care Team Providers Care Examiner Of Currency Name Role Phone MARGA LEON Unavailable [phone] Allergies Allergen (clinical drug ingredient) Drug/Non Drug Allergy documented on EMR Reaction Allergy Type Onset Date Status Seasonal IC Unknown Drug Allergy Activ e amoxicillin Amoxicillin Unknown Drug Allergy Act marie REASON FOR VISIT PrEP F/U Medications Medication SIG (Take, Route, Frequency, Duration) Notes Start Date End Date Status Lexapro Active Estradiol Valerate 20 MG/ML 0.3 MILLILITER SUBCUTANEOUS ONCE A WEEK for 28 days Active Prometrium 100 MG 1 capsule at bedtime Orally Once a day for 90 days 08/28/2023 Active ZyrTEC Active Truvada 200-300 MG 1 tablet Orally Once a day for 90 days MARGA LEON 06/03/2024 10:07:18 AM EDT > extension Rx until July visit 12/19/2022 Active BD Syringe Luer-Timur 1 ML once weeklly for 180 days 12/02/2023 Active Tadalafil 10 MG 1 tablet as needed Orally Once a day for 30 days 08/28/2023 Active Albuterol 2 MG 1 tablet Orally Thre e times a day for 30 day(s) prn Active BD Disp D Lo 19G X 1 once a week for 180 days 12/02/2023 Active BD Disp D Lo 25G X 5/8 once a week for 180 days 12/02/2023 Active Social History Sex Assigned At : Social History Observation Description Sex Assigned At Male Encounters Encounter Location Date Provider Diagnosis [address] [place], [place] [phone] 09/29/2024 MARGA LEON Plan Of Treatment No Information Progress Notes * Miki GREENDOB: [birth year] (29 yo M)Acc No.[id number]:09/29/2024 Patient:?Miki GREEN Provider:?MARGA LEON :1995???Age:29 Y???Sex:Male(T) Date:09/29/2024 Address:[address] [place], [place] [id number] Subjective: * Chief Complaints: * ???1. PrEP F/U. * Medical History:?Migraines/ severe headaches related to stress/occasionally purple spots like amoeba , Weight concerns, Post-nasal drip, Mental health concerns, Depression/anxiety, Multiple concussions. * Surgical History:?knee surg , tonsil and adenoid removal . * Hospitalization/Major Diagno stic Procedure:?Denies Past Hospitalization. * Family History:? heart dx/HBP and mental health issues fathers side, mental health issues mothers side Heart disease paternal uncle and PGM. * Social History:?Food Access:?Food Access?The Client's current access to food is?Secure Food Access ???Gender Affirming Hormone Care:?Gender Affirming Hormone Care?How do you describe your gender identity? Select all that apply?Nonbinary, Woman she/they ?How would you prefer to talk about or refer to your body??(Describe in notes.) general anatomic terms ?What experience do you have with gender affirming care, if any??Social transition started gender journey 11/2021 and has since been cnsidering hormones and is now ready to begin this part of her journey ?What are your goals with seeking gender affirming care??Hormonal transition (describe in notes), Social transition (describe in notes) clt has goal to redistribute fat in body softer skin less hir on face/body and more feminine physique ?While hormonal treatment is not contraception, it can have an impact on fertility. Is this something you would like to plan for??Yes ???Housing:?Housing?The client's current living situation is:?stable housing ???Reproductive Life Plan:?Reproductive Life Plan?Do you want to have children??Not sure ???Sexual History:?Sexual History?Sexual History Reviewed:?Partners, Practices, Protection/Past STIs, Prevention of , ___ ?Currently sexually active??Yes ?Sexually active with:?Men, Women ?Your sexual activities include:?anal intercourse, oral intercourse, vaginal intercourse ?Do you use condoms??Yes ?Condoms are used:?most of the time ?Date of last unprotected intercourse:?05/29/2024 orala year ago ?Number of partners in past 3 months:?4 ?Number of partners in past year:?10 ???HIV Risk Assessment:?Additional Questions?Is an HIV Risk Assessment being conducted??Yes ?Have you been tested for HIV before??Yes ???PrEP for HIV:?PrEP for HIV?Is the client [...] or pressured into sexual activities??Yes ?Currently:?No ?drugs, fpc, safety, other.?Yes ???Human Trafficking:?Human Trafficking?Experienced:?No ???Tobacco Use:?Tobacco Use?Do you/have you used tobacco??Yes, in the past ?When did you quit?Tobacco Smoking Status?Former smoker ???Drugs/Alcohol:?Drug/Alcohol Use?Do you or have you used drugs??Yes, currently ?By what route are you taking drugs? Please check all that apply:?Smoking, Intranasally (snorting), Ingesting (eating) ?Which drug(s) do you smoke??Marijuana ?When did you last use?Which drug(s) do you use intranasally (snort)??Crack/cocaine ?When did you last use??04/30/2024 ?Do you share equpiment??No ?Have you been tested for Hepatitis C before??Yes ?[facility] about [facility]??Yes ?Which drug(s) do you ingest (eat)??Other (please specify in notes) Carli ?When did you last use??05/30/2024 ?Do you or have you used alcohol??Yes, currently Binge drinks at times ???Counseling Provided:?Counseling Provided?Please indicate the length of time, in minutes, that counseling was provided.?5 ?Counseling Was Provided By:?abhishek * Medications:?Taking Lexapro , Taking Estradiol Valerate 20 MG/ML Oil 0.3 MILLILITER SUBCUTANEOUS ONCE A WEEK , Taking Prometrium 100 MG Capsule 1 capsule at bedtime Orally Once a day , Taking ZyrTEC , Taking Albuterol 2 MG Tablet 1 tablet Orally Three times a day , Notes to Pharmacist: prn, Taking BD Disp D Lo 19G X 1 Miscellaneous once a week , Taking BD Disp D Lo 25G X 5/8 Miscellaneous once a week , Taking BD Syringe Luer-Timur 1 ML Miscellaneous once weeklly , Taking Tadalafil 10 MG Tablet 1 tablet as needed Orally Once a day , Taking Truvada 200-300 MG Tablet 1 tablet Orally Once a day , Notes to Pharmacist: MARGA LEON 06/03/2024 10:07:18 AM EDT > extension Rx until July visit, Medication List reviewed and reconciled with the patient * Allergies:?Amoxicillin, Seas onal IC. Objective: * Vitals:? Assessment: Plan: * Treatment: * Billing Information: * Visit Code:? * Procedure Codes:? * Electronic signature of SEEMA LEON CNM on 11/09/2024 at 09:37 AM EDT Sign off status: Pending * Provider:CIELO LEON Date:?09/29/2024 Generated for Prem salinas/Chacha/Juwan on:?11/09/2024 09:37 AM EDT History and Physical Notes * HPI (History of Present Illness) Category Sub-Category Detail Notes Category Not es Medicare Annual Visit Patient Care Team
--- OUTSIDE RECORDS SUMMARY | 2024-11-09 09:37 | XMS_ITS | Data Portability ---
Author Organization [facility] Address [address] [place] [address] Assessment No assessment recorded. Plan of Treatment Reminders Order Date Submit Date Provider Last Modified By Organization Details Last Modified Time Details Appointments None recorded. Lab rapid SARS CoV 2 Ag, QL IA, respiratory specimen 2022 023 [facility], [address] [place] [address], [id number], 14:01:30 Referral None recorded. Procedures None recorded. Surgeries None recorded. Imaging None recorded. Medication Orders cefdinir [address] capsule [address] [id number], [address] [place], [place], [phone], 3 20:15:48 prednisone 20 mg tablet [address] [id number], [address], [place], [id number], 3 14:05:32 Allergy Relief (fluticason e) 50 mcg/actuati on nasal spray,suspe nsion [address] [facility][id number], [address], [place], [id number], 3 14:05:32 Patient TargetsNo targets recorded. Patient Instructions Encounter Date Encounter Id Patient Instructions Last Modified By Organization Details Last Modified Time 09/27/2022 [id number] coronavirus (covid-19): care instructions Not available 09/27/2022 [...] taking a prescription pain medicine, take an lqud-pib-isqlvvy medicine, such as acetaminophen (Tylenol), ibuprofen (Advil, [...] Unknown Analyte Normal =Negat marie Not Available _[address], [phone], 09/27/2022 13:26:02 09/27/1909/27/2022 rapid SARS CoV 2 Ag, QL IA, respi rator y speci men Unknown Analyte negati ve Not Available [address] [place] [address], [phone], 09/27/2022 13:26:02 Result Notes None recorded. Problems Name Problem SNOMED Code Status Onset Date Resolution Date Notes Provider Name and Address Organization Details Recorded Time Anxiety 04785943 Active 023 GEMINI Candelario [facility] 3 13:29:22 Depressive disorder 16927395 Active 023 GEMINI Candelario [facility] 3 [...] ) 50 mcg/actuatio n nasal spray,suspen imelda Clifton 1 spray twice a day by intranasal [...] Updated DateTime 3 175.26 cm 48 kg/m2 771328. 52 g 2 100 % 100 % [...] null, PA - [facility] 09/27/2022 13:27:21 [id number]-[id number] 6 completed Annette Monfette null, PA - [facility] 09/27/2022 13:27:21 MDmP-Vwa-XTW 7 completed Annette Monfette null, PA - [facility] 09/27/2022 13:27:21 IZgL-Skc-QYS 6 completed Annette Monfette null, PA - [facility] 09/27/2022 13:27:21 DFbC-Vxl-HBZ 6 completed Annette Monfette null, PA - [...] SNOMED-CT Code Diagnosis ICD10 Code Diagnosis Note [id number] 21005_Jose desouzar [address] [place] [phone] 03/08/2022 08:32:11 03/08/2022 11:18:16 [id number] 21005_Jose Blackvt deor [address] [place] [phone] 04/15/2018 13:06:38 04/15/2018 14:00:54 [id number] 2[address] [address] 04/03/2022 08:36:05 04/03/2022 12:38:48 [id number] [address] [place] [address] 08/13/2019 16:29:07 08/13/2019 17:04:35 [id number] [address] [place] [address] 03/27/2021 11:40:54 03/27/2021 13:38:00 [id number] Miguel Newsome NP [address] [place] [address] 09/27/2022 10:47:12 09/27/2022 14:11:47 Exposure to SARS-CoV-2 716038099 Z20.822 Acute left otitis media 108080071 H66.92 Health Concerns Section Related Observation LastModified by Organization Detai ls LastModified Time None Recorded Concern Status LastModified by Organization Details LastModified Time None Recorded Advance Directives Directive None Recorded Payers Encounter Date Sequence Insurance Name Policy Number Policy Vick Covered Member ID Vick Member ID Guarantor Name 09/27/2022 1 [facility] [id number] Miki Lai [id number] Miki Lai 09/27/2022 1 [facility] ([place] [id number] Miki Lai [id number] Miki Lai Notes Date Note Type [...] Newsome NP [address] [place], [address], [place] - [facility] 09/27/2022 15:10:19
--- OUTSIDE RECORDS SUMMARY | 2024-11-09 09:37 | XMS_ITS ---
Author Organization [facility] Address [address] [place] [phone] Care Team Providers Care Proposal Manager Name Role Phone KIERA FRAZIER Unavailable [phone] REASON FOR VISIT prep fu Social History Sex Assigned At : Social History Observation Description Sex Assigned At Male Encounters Encounter Location Date Provider Diagnosis [facility] [address] [place] [address] [place] [place], [place] [phone] 09/27/2024 KIERA FRAZIER Plan Of Treatment No Information Progress Notes * Miki GREENDOB: [birth year] (29 yo M)Acc No.[id number]:09/27/2024 Progress Notes Patient:?Miki GREEN Provider:?Kiera Frazier NP :1995???Age:29 Y???Sex:Male(T) Date:09/27/2024 Address:[address] [id number] Subjective: * Chief Complaints: * ???1. Prep fu. * Medical History:? Objective: * Vitals:? Assessment: Plan: * Treatment: * Billing Information: * Visit Code:? * Procedure Codes:? * Electronic signature of JABARI FRAZIER NP on 11/09/2024 at 09:37 AM EDT Sign off status: Pending * Provider:Conchis Frazier NP Date:? 025 Generated for Printi ng/Faalinag/eTransmitting on:?11/09/2024 09:37 AM EDT
--- OUTSIDE RECORDS SUMMARY | 2024-11-09 09:37 | XMS_ITS | Patient Health Record ---
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 Role Phone JENNAFloridaRAZIA Unavailable [phone] ZAIN FUNES Unavailable [phone] MARGA LEON Unavailable [phone] Divina Aguilar Unavailable [phone] Allergies Allergen (clinical drug ingredient) Drug/Non Drug Allergy documented on EMR Reaction Allergy Type Onset Date Status Seasonal IC Unknown Drug Allergy Activ e amoxicillin Amoxicillin Unknown Drug Allergy Act marie Results Component Value Reference Range Notes Estradiol-[id number] Reviewed date:04/15/2024 04:47:31 PM Interpretation:243 Performing Lab:[facility] [place], [address] [facility], Phone - [phone], Director - Leni Notes/Report: Clinical Information:Client on hormones. Please run labs as ordered regar dless of t Estradiol 243.0 7.6-42.6 pg/mL Chandu ECLIA m ethodology Testosterone-[id number] Reviewed date:04/15/2024 04:47:42 PM Interpretation:15 Performing Lab:[facility] [place], [address] [facility], Phone - [phone], Director - Leni Notes/Report: Clinical Information:Client on hormones. Please run labs as ordered regar dless of t Testosterone 15 264-916 ng/dL Adult male reference interval is based on a population of healthy nonobese males (BMI <30) between 19 and 39 years old. clarence Bridges.al. JCEM 2017,102;4434-4516. PMID: 76214122. HCV Antibody-[id number] Reviewed date:03/08/2024 10:10:17 AM Interpretation:Non-reactive Performing Lab:[facility] [place], [address], [address], [place], Phone - [phone], Director - [facility] Notes/Report: Hep C Virus Ab Non Reactive Non Reactive HCV antibody alone does not differentiate between previously resolved infection and active infection. Equivocal and Reactive HCV antibody results should be followed up with an HCV RNA test to support the diagnosis of active HCV infection. Ct/GC ALLEN, Pharyngeal-[id number] Reviewed date:03/11/2024 12:40:40 PM Interpretation:Negative Performing Lab:[facility] [place], [address], [address], [place], Phone - [phone], Director - [facility] Notes/Report: C. trachomatis, ALLEN, Pharyn Negative Negative N. gonorrhoeae, ALLEN, Pharyn Negative Negative Ct/GC ALLEN, Pharyngeal-[id number] Reviewed date:12/04/2023 08:51:00 AM Interpretation:Negative Performing Lab:[facility], [address] [place] [address], Phone - [phone], Director - [facility] Notes/Report: Test(s) 672558-W. trachomatis, ALLEN, Rectal; 183116- N. gonorrhoeae, ALLEN, Rectal; 097146-H. trachomatis, ALLEN, Pharyn; 735512-M. gonorrhoeae, ALLEN, Pharyn was developed and its performance characteristics determined by [employer] [employer]. It has not been cleared or approved by the Food and Drug Administration. C. trachomatis, ALLEN, Pharyn Negative Negative N. gonorrhoeae, ALLEN, Pharyn Negative Negative Ct/GC ALLEN, Rectal-[id number] Reviewed date:12/04/2023 12:18:21 PM Interpretation:Negative Performing Lab:[facility] [place], [address] [facility], Phone - [phone], Director - [facility] Notes/Report: Test(s) 235792-R. trachomatis, ALLEN, Rectal; 387915- N. gonorrhoeae, ALLEN, Rectal; 730114-F. trachomatis, ALLEN, Pharyn; 319454-Y. gonorrhoeae, ALLEN, Pharyn was developed and its performance characteristics determined by [employer]. It has not been cleared or approved by the Food and Drug Administration. C. trachomatis, ALLEN, Rectal Negative Negative N. gonorrhoeae, ALLEN, Rectal Negative Negative Chlamydia/GC Amplification-1 [id number] Reviewed date:03/08/2024 10:10:04 AM Interpretation:Negative Performing Lab:[facility] [address], [address], [place], Phone - [phone], Director - [facility] Notes/Report: Chlamydia trachomatis, ALLEN Negative Negative Neisseria gonorrhoeae, ALLEN Negative Negative HIV Ab/p24 Ag with Reflex-08 3935 Reviewed date:12/04/2023 12:22:07 PM Interpretation:Negative Performing Lab:[facility] [place], [address] [place] [address], Phone - [phone], Director - [facility] Notes/Report: HIV Ab/p24 Ag Screen Non Reactive Non Reactive HIV Negative HIV-1/HIV-2 antibodies and HIV-1 p24 antigen were NOT detected. There is no laboratory evidence of HIV infection. HIV Ab/p24 Ag with Reflex-08 3935 Reviewed date:03/08/2024 10:09:52 AM Interpretation:Non-reactive Performing Lab:[facility], [address], [place], Phone - [phone], Director - [facility] Notes/Report: HIV Ab/p24 Ag Screen Non Reactive Non Reactive HIV-1/HIV-2 antibodies and HIV-1 p24 antigen were NOT detected. There is no laboratory evidence of HIV infection. HIV Negative T pallidum Screening [place] -[id number] Reviewed date:03/08/2024 10:09:39 AM Interpretation:Non-reactive Performing Lab:[facility] [place], [address] [place] [address], Phone - [phone], Director - Leni Notes/Report: T pallidum Antibodies Non Reactive Non Reactive T pallidum Screening [place] -333325 Reviewed date:12/04/2023 12:18:33 PM Interpretation:Negative Performing Lab:[facility] [place], [address] [place] [address], Phone - [phone], Director - Leni Notes/Report: T pallidum Antibodies Non Reactive Non Reactive Testosterone, Total, LC/MS-0 68118 Reviewed date:12/18/2023 05:07:32 PM Interpretation:105 Performing Lab:[facility], [address] [place] [address], Phone - [phone], [facility] Notes/Report: Testosterone, Total, LC/MS 105 This test was developed and its performance characteristics determined by [employer] It has not been cleared or approved by the Food and Drug Administration. Reference Range: Adult Males >18 years 264 - 916 This [facility] LC/MS-MS method is currently certified by the CDC Hormone Standardization Program (HoST). Adult male reference interval is based on a population of healthy nonobese males (BMI <30) between 19 and 39 years old. Yuliana, et.al. JCEM 2017,102;2003-3587 PMID: 06346129. Estradiol-159554 Reviewed date:03/07/2024 12:06:47 PM Interpretation:516 Elevated Performing Lab:[facility] [address], Phone - [phone], [facility] Notes/Report: Estradiol 516.0 7.6-42.6 pg/mL LydiaIA m ethodology Estradiol-714088 Reviewed date:12/04/2023 12:22:14 PM Interpretation:124 Performing Lab:[facility] [address], Phone - [phone], Director - [facility] Notes/Report: Estradiol 124.0 7.6-42.6 pg/mL [facility] Testosterone-811526 Reviewed date:03/07/2024 12:03:08 PM Interpretation:18 Performing Lab:[facility] [address], Phone - [phone], Director [facility] Notes/Report: Testosterone 18 264-916 ng/dL Adult male reference interval is based on a population of healthy nonobese males (BMI <30) between 19 and 39 years old. Yuliana, et.al. JCEM 2017,102;1015-9072. PMID: 35222650. Creatinine-119430 Reviewed date:03/08/2024 10:15:06 AM Interpretation:Cr 0.8, eCrCl 166-200ml/min Performing Lab:[facility] [address], Phone - [phone], Director - [facility] Notes/Report: Creatinine 0.80 0.76-1.27 mg/dL eGFR 124 >59 mL/min/1.73 Urinalysis Reviewed date:03/08/2024 10:16:45 AM Interpretation:Abnormal Performing Lab: Notes/Report: Abnormal Leukocytes 15 Nitrates - Uro 0.2 Protein - pH 6.0 Blood - Spec [place] 1.030 Ketones 5 Bilirubin - Glucose - Ct/GC ALLEN, Pharyngeal-[id number] Reviewed date:05/31/2024 06:33:27 PM Interpretation:Negative Performing Lab:[facility], [address], [address], [place], Phone - [phone], Director - [facility] Notes/Report: Clinical Information:SRC:urine C. trachomatis, ALLEN, Pharyn Negative Negative N. gonorrhoeae, ALLEN, Pharyn Negative Negative Ct/GC ALLEN, Pharyngeal-[id number] Reviewed date:07/11/2024 03:44:42 PM Interpretation:Negative Performing Lab:[facility] [place], [address], [address], [place], Phone - [phone], Director - [facility] Notes/Report: C. trachomatis, ALLEN, Pharyn Negative Negative N. gonorrhoeae, ALLEN, Pharyn Negative Negative Ct/GC ALLEN, Rectal-[id number] Reviewed date:07/11/2024 03:44:32 PM Interpretation:Negative Performing Lab:[facility] [place], [address], [address], [place], Phone - [phone], Director - [facility] Notes/Report: C. trachomatis, ALLEN, Rectal Negative Negative N. gonorrhoeae, ALLEN, Rectal Negative Negative Chlamydia/GC Amplification-1 13648 Reviewed date:07/11/2024 03:44:19 PM Interpretation:Negative Performing Lab:[facility] [place], [address], [address], [place], Phone - [phone], Director - [facility] Notes/Report: Chlamydia trachomatis, ALLEN Negative Negative Neisseria gonorrhoeae, ALLEN Negative Negative Ct, Ng, Trich vag by ALLEN-183 160 Reviewed date:05/31/2024 06:33:20 PM Interpretation:Negative Performing Lab:[facility] [place], [address], [address], [place], Phone - [phone], Director - [facility] Notes/Report: Clinical Information:SRC:urine Chlamydia by ALLEN Negative Negative Gonococcus by ALLEN Negative Negative Trich vag by ALLEN Negative Negative HCV Antibody RFX to Quant PC R-[id number] Reviewed date:07/11/2024 03:44:03 PM Interpretation:Negative Performing Lab:[facility] [place], [address], [address], [place], Phone - [phone], Director - [facility] Notes/Report: HCV Ab Non Reactive Non Reactive Interpretation: Not infected with HCV unless early or acute infection is suspected (which may be delayed in an immunocompromised individual), or other evidence exists to indicate HCV infection. HIV Ab/p24 Ag with Reflex-08 3935 Reviewed date:07/11/2024 03:43:24 PM Interpretation:Negative Performing Lab:[facility] [place], [address], [address], [place], Phone - [phone], Director - [facility] Notes/Report: HIV Ab/p24 Ag Screen Non Reactive Non Reactive HIV-1/HIV-2 antibodies and HIV-1 p24 antigen were NOT detected. There is no laboratory evidence of HIV infection. HIV Negative T pallidum Screening [place] -[id number] Reviewed date:05/31/2024 02:10:47 PM Interpretation:Negative Performing Lab:[facility] [place], [address], [address], [place], Phone - [phone], Director - [facility] Notes/Report: Clinical Information:SRC:urine T pallidum Antibodies Non Reactive Non Reactive T pallidum Screening [place] -[id number] Reviewed date:07/11/2024 03:43:49 PM Interpretation:Negative Performing Lab:[facility] [place], [address], [address], [place], Phone - [phone], Director - [facility] Notes/Report: T pallidum Antibodies Non Reactive Non Reactive HBsAg Screen-987340 Reviewed date:07/11/2024 03:43:36 PM Interpretation:Negative Performing Lab:[facility] [place], [address], [address], [place], Phone - [phone], Director - [facility] Notes/Report: HBsAg Screen Negative Negative Reason For Referral No Information Medications Medication SIG (Take, Route, Frequency, Duration) Notes Start Date End Date Status Lexapro Active Estradiol Valerate 20 MG/ML 0.3 MILLILITER SUBCUTANEOUS ONCE A WEEK for 28 days Active Prometrium 100 MG 1 capsule at bedtime Orally Once a day for 90 days 08/28/2023 Active ZyrTEC Active BD Syringe Luer-Timur 1 ML once weeklly for 180 days 12/02/2023 Active Tadalafil 10 MG 1 tablet as needed Orally Once a day for 30 days 08/28/2023 Active Truvada 200-300 MG 1 tablet Orally Once a day for 90 days MARGA LEON 06/03/2024 10:07:18 AM EDT > extension Rx until July fu visit 12/19/2022 Active Albuterol 2 MG 1 tablet Orally Thre e times a day for 30 day(s) prn Active BD Disp Cannon [place] 19G X 1 once a week for 180 days 12/02/2023 Active BD Disp [place] 25G X 5/8 once a week for 180 days 12/02/2023 Active Social History Sex Assigned At : Social History Observation Description Sex Assigned At Male Section Notes: Social Hx not reviewed today Social Hx not reviewed today Bw , client declines aptima Bw , client declines aptima Aptima/ Bw Aptima/ Bw Problems Problem Type SNOMED Code ICD Code Onset Dates Problem Status W/U Status Risk Notes Problem 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 Problem Gender identity disorder (22619275) Gender identity disorder, unspecified (F64.9) Active confirmed Problem Erectile dysfunction (disorder) (675715415) Male erectile dysfunction, unspecified (N52.9) Active confirmed Vital Signs Blood pressure diastolic 90 mm Hg 07/07/2024 Height 5ft 8in in 07/07/2024 Blood pressure systolic 130 mm Hg 07/07/2024 Weight 363.4 lbs 07/07/2024 BMI 55.25 kg/m2 07/07/2024 Encounters Encounter Location Date Provider Diagnosis [address] [id number] 12/02/2023 ZAIN FUNES Gender identity disorder, unspecified F64.9 ; Hormone replacement therapy Z79.890 ; Encounter for HIV pre-exposure prophylaxis Z29.81 ; Encounter for screening for infections with a predominantly sexual mode of transmission Z11.3 and HIV Screening Z11.[address] [id number] 12/09/2023 ZAIN FUNES Gender identity disorder, unspecified F64.9 and Hormone replacement [facility] Z79.890 [facility] [address] [place] [id number] 03/04/2024 MARGADARYL LEON Gender identity disorder, unspecified F64.9 ; Hormone replacement therapy Z79.890 ; Encounter for screening for infections with a predominantly sexual mode of transmission Z11.3 ; Encounter for screening for human immunodeficiency virus [HIV] Z11.4 ; Screening for other viral diseases Z11.59 ; Other long winder tender (current) drug therapy Z79.899 ; Urinary frequency R35.0 and Encounter for HIV pre-exposure prophylaxis Z29.81 [facility] [address] [place], [place] [id number] 03/12/2024 MARGA CAROLYN Hormone replacement therapy Z79.890 and Other gender identity disorders F64.8 [facility] [address] [place] [address] [id number] 04/08/2024 RAZIA GABAI Hormone replacement therapy Z79.890 [facility] [address] [place] [address] [id number] 04/14/2024 MARGA LEON Gender identity disorder, unspecified F64.9 ; Hormone replacement therapy Z79.890 ; Encounter for screening for infections with a predominantly sexual mode of transmission Z11.3 ; Other problems related to lifestyle Z72.89 and HIV Screening Z11.[address] [id number] 05/30/2024 RAZIA GABAI Encounter for screen ing for infections with a predominantly sexual mode of transmission Z11.3 ; Counseling, unspecified Z71.9 and Other problems related to lifestyle Z72.89 [facility] [address] [place], [place] [id number] 07/07/2024 MARGA LEON Encounter for screen ing for human immunodeficiency virus [HIV] Z11.4 ; Encounter for HIV pre-exposure prophylaxis Z29.81 ; Other problems related to lifestyle Z72.89 ; Encounter for screening for infections with a predominantly sexual mode of transmission Z11.3 and Encounter for screening for other viral diseases Z11.[address] [id number] 11/11/2023 ZAIN FUNES Hormone replacement therapy Z79.[address], [place] [id number] 12/04/2023 ZAIN FUNES Hormone replacement therapy Z79.890 [facility] [address] [id number] 12/18/2023 [facility] [address] [id number] 03/04/2024 MARGA CAROLYN [facility] [address] [id number] 04/14/2024 [facility] LEON [facility] [address] [id number] 06/03/2024 MARGA LEON Encounter for HIV pre-exposure prophylaxis Z29.81 [facility] [address] [id number] 07/07/2024 MARGA LEON Assessments Encounter Date Diagnosis (ICD Code) Assessment Notes Treatment Notes Treatment Clinical Notes Section Notes 11/11/2023 Hormone replacement therapy (ICD-10 - Z79.890) 03/12/2024 Other gender identity disorders (ICD-10 - F64.8) Need 2 out of 3 Sections from A-C Section A) Problems (only need one from below) One acute or uncomplicated illness/injury Section B) Data (at least one of the following categories in this section) Category 1: (Choose 2 of the following): Order unique tests Section C) Risk Document low risk of morbidity/morta lity 03/12/2024 Hormone replacement therapy (ICD-10 - Z79.890) Reviewed that current estradiol level is above suggested goal range of 100-200. Clt is amendable to adjust dosing. Will try 0.3ml and repeat labs in 4 wks for dosage adjusting- plan for a Thursday blood draw with a fu phone visit about 1 wk after. Refills sent and labs ordered. Staff to contact t to schedule appointments Need 2 out of 3 Sections from A-C Section A) Problems (only need one from below) One acute or uncomplicated illness/injury Section B) Data (at least one of the following categories in this section) Category 1: (Choose 2 of the following): Order unique tests Section C) Risk Document low risk of morbidity/morta lity 04/08/2024 Hormone replacement therapy (ICD-10 - Z79.890) 04/14/2024 Gender identity disorder, unspecified (ICD-10 - F64.9) Reviewed current labs are more in line with suggested goal range of 100-200. Clt happy to stay at current dosing regimen. Would like refill on [place]. Rx sent. Follow-up options reviewed. Clt would like another visit with PrEP in 3 months and then if stable extend out. Will extend PrEP visit out and plan visit for late Jun/early July. Can send extension Rx out around that time. May come in sooner for labs as needed. Clt in agreement. Plan for PrEP and GAH labs in 10 wks and fu visit in 12 weeks approximately Need 2 out of 3 Sections from A-C Section A) Problems (only need one from below) Section B) Data (need at least one of the following categories in this section) Category 1: (Choose three of the following): Order Unique tests Section C) Risk (any one of the following) Prescription drug management (this counts for the whole section) 04/14/2024 Hormone replacement therapy (ICD-10 - Z79.890) Need 2 out of 3 Sections from A-C Section A) Problems (only need one from below) Section B) Data (need at least one of the following categories in this section) Category 1: (Choose three of the following): Order Unique tests Section C) Risk (any one of the following) Prescription drug management (this counts for the whole section) 05/30/2024 Encounter for screening for infections with a predominantly sexual mode of transmission (ICD-10 - Z11.3) Reviewed routine screening, safe sex and condom use. Aware of window period for testing and testing options. Discussed symptoms that would warrant further evaluation and follow-up care Spent ___ minutes doing the following: Chart Prep Obtaining/revie wing history Performing medically necessary exam Counseling/Coor dination of Care Documenting the visit Educating the patient Ordering medication/test /procedures Communication of test results Established Patient: 09822 10 Minutes 06/03/2024 Encounter for HIV pre-exposure prophylaxis (ICD-10 - Z29.81) 07/07/2024 Encounter for screening for human immunodeficiency [...] management (this counts for the whole section) 03/04/2024 Gender identity disorder, unspecified (ICD-10 - F64.9) Reviewed chart and experience with [facility] so far. Overall happy. Will check levels today and reach out to clt once labs reviewed. Can do dose adjusting acordingly Record release signed and will send records to [facility]. Clt can update us based on needs for continued GAH fu Did review BATISTA's- if we do think at all hormonally related can try patches for a more steady state of hormones to see if that helps. Advised workup by PCP however as clt with compounding issues that maybe contributing to BATISTA's. Will continue to monitor. Clt in agreement with plan Need 2 out of 3 Sections from A-C Section A) Problems (only need one from below) Section B) Data (need at least one of the following categories in this section) Category 1: (Choose three of the following): Order Unique tests Section C) Risk (any one of the following) Prescription drug management (this counts for the whole section) 03/04/2024 Hormone replacement therapy (ICD-10 - Z79.890) Need 2 out of 3 Sections from A-C Section A) Problems (only need one from below) Section B) Data (need at least one of the following categories in this section) Category 1: (Choose three of the following): Order Unique tests Section C) Risk (any one of the following) Prescription drug management (this counts for the whole section) 12/09/2023 Gender identity disorder, unspecified (ICD-10 - F64.9) Spent 22 minutes doing the following: Chart Prep Obtaining/revie wing history Counseling/Coor dination of Care Documenting the visit Educating the patient Ordering medication/test /procedures 12/09/2023 Hormone replacement therapy (ICD-10 - Z79.890) Client successfully angela up medication, switched needles and injected 0.35cc estradiol sq in abd. Client felt comfortable with this process. Their shot day will be on in the future and follow up appts will be on Fridays. Spent 22 minutes doing the following: Chart Prep Obtaining/revie wing history Counseling/Coor dination of Care Documenting the visit Educating the patient Ordering medication/test /procedures 12/02/2023 Gender identity disorder, unspecified (ICD-10 - F64.9) Spent 23 minutes doing the following: Chart Prep Obtaining/revie wing history Counseling/Coor dination of Care Documenting the visit Educating the patient Ordering medication/test /procedures 12/02/2023 Hormone replacement therapy (ICD-10 - Z79.890) They will bring in supplies and estradiol to next appt. Info given re self injection to review. Spent 23 minutes doing the following: Chart Prep Obtaining/revie wing history Counseling/Coor dination of Care Documenting the visit Educating the patient Ordering medication/test /procedures 12/04/2023 Hormone replacement therapy (ICD-10 - Z79.890) 03/04/2024 Encounter for screening for infections with a predominantly sexual mode of transmission (ICD-10 - Z11.3) Discussed STI risks, screenings that are available through [facility] and safe sex. Clt aware of lab processing times and [...] management (this counts for the whole section) 12/02/2023 Encounter for HIV pre-exposure prophylaxis (ICD-10 - Z29.81) Spent 23 minutes doing the following: Chart Prep Obtaining/revie wing history Counseling/Coor dination of Care Documenting the visit Educating the patient Ordering medication/test /procedures 07/07/2024 Encounter for HIV pre-exposure prophylaxis (ICD-10 [...] management (this counts for the whole section) 05/30/2024 Counseling, unspecified (ICD-10 - Z71.9) Spent ___ minutes doing the following: Chart Prep Obtaining/revie wing history Performing medically necessary exam Counseling/Coor dination of Care Documenting the visit Educating the patient Ordering medication/test /procedures Communication of test results Established Patient: 55445 10 Minutes 04/14/2024 Encounter for screening for infections with a predominantly sexual mode of transmission (ICD-10 - Z11.3) Future PrEP/STI labs Need 2 out of 3 Sections from A-C Section A) Problems (only need one from below) Section B) Data (need at least one of the following categories in this section) Category 1: (Choose three of the following): Order Unique tests Section C) Risk (any one of the following) Prescription drug management (this counts for the whole section) 04/14/2024 Other problems related to lifestyle (ICD-10 - [...] management (this counts for the whole section) 05/30/2024 Other problems related to lifestyle (ICD-10 - Z72.89) Spent ___ minutes doing the following: Chart Prep Obtaining/revie wing history Performing medically necessary exam Counseling/Coor dination of Care Documenting the visit Educating the patient Ordering medication/test /procedures Communication of test results Established Patient: 23503 10 Minutes 03/04/2024 Encounter for screening for human immunodeficiency virus [...] management (this counts for the whole section) 12/02/2023 Encounter for screening for infections with a predominantly sexual mode of transmission (ICD-10 - Z11.3) Spent 23 minutes doing the following: Chart Prep Obtaining/revie wing history Counseling/Coor dination of Care Documenting the visit Educating the patient Ordering medication/test /procedures 12/02/2023 HIV Screening (ICD-10 - Z11.4) Spent 23 minutes doing the following: Chart Prep Obtaining/revie wing history Counseling/Coor dination of Care Documenting the visit Educating the patient Ordering medication/test /procedures 03/04/2024 Screening for other viral diseases (ICD-10 - Z11.59) [...] management (this counts for the whole section) 04/14/2024 HIV Screening (ICD-10 - Z11.4) Need 2 out of [...] management (this counts for the whole section) 03/04/2024 Other long winder tender (current) drug therapy (ICD-10 - Z79.899) Need 2 out of 3 Sections from A-C Section A) Problems (only need one from below) Section B) Data (need at least one of the following categories in this section) Category 1: (Choose three of the following): Order Unique tests Section C) Risk (any one of the following) Prescription drug management (this counts for the whole section) 03/04/2024 Urinary frequency (ICD-10 - R35.0) UA with leuks. Not a clean catch. No protein. Is concentrated. Advised to increase fluid intake and will R/o STI's and check on renal status out of caution Need 2 out of 3 Sections from A-C Section A) Problems (only need one from below) Section B) Data (need at least one of the following categories in this section) Category 1: (Choose three of the following): Order Unique tests Section C) Risk (any one of the following) Prescription drug management (this counts for the whole section) 03/04/2024 Encounter for HIV pre-exposure prophylaxis (ICD-10 - Z29.81) For PrEP labs today. Will send 90 day supply now. Did reviewed Truvada vs Descovy. Clt would like to continue with Truvada for now Need 2 out of 3 Sections from A-C Section A) Problems (only need one from below) Section B) Data (need at least one of the following categories in this section) Category 1: (Choose three of the following): Order Unique tests Section C) Risk (any one of the following) Prescription drug management (this counts for the whole section) 05/30/2024 Other [facility] dispensed in house for [facility] meds, since pharmacy did not have in stock. Spent ___ minutes doing the following: Chart Prep Obtaining/revie wing history Performing medically necessary exam Counseling/Coor dination of Care Documenting the visit Educating the patient Ordering medication/test /procedures Communication of test results Established Patient: [id number] 10 Minutes 07/07/2024 Other Call to pharmacy- insurance not [...] for the whole section) Plan Of Treatment No Information Insurance Providers Payer Name Payer Address Payer Phone Subscriber Number Group Number Insured Name Patient Relationship to Insured Coverage Start Date Coverage End Date [facility] [address] [place], [place] [id number] Miki Lai Self - patient is the insured [employer] INS[employer] [address] [address] [place] [address] [id number] Miki Lai Self - patient is the insured Medical (General) History Medical History History ICD Code migraines/ severe headaches related to stress/occasionally purple spots like amoeba weight concerns Post-nasal drip mental health concerns depression/anxiety Multiple concussions Surgical History Surgery Date(Month/Year) knee surg tonsil and adenoid removal Hospitalization History Reason Date(Month/Year)
--- OUTSIDE RECORDS SUMMARY | 2024-11-09 09:38 | XMS_ITS | Encounter Summary ---
Author Organization [facility] Address [address] [place] [address] Phone Care Team Providers Care Operators Teacher Name Role Phone Irwin Nicholson MD Primary Care Provider [phone] Encounter Details Date Type Department Care Team (Late st Contact Info) Description 02/13/2011 Conversion Encounter [facility] [address] [facility] [place] [address] Social History Tobacco Use Types Packs/Day Years [...] on filedocumented in this encounter Care Teams Operators Teacher Relationship Specialty Start Date End Date Irwin Nicholson MD [facility] [facility] [place] [address] PCP - General 12/09/17 documented as of this encounter
--- OUTSIDE RECORDS SUMMARY | 2024-11-09 09:38 | XMS_ITS ---
Author Organization [facility] Address [address] [place] [phone] Care Team Providers Care Transfer And Line Up Worker Name Role Phone Divina Aguilar Unavailable [phone] REASON FOR VISIT PrEP F/U Social History Sex Assigned At : Social History Observation Description Sex Assigned At Male Encounters Encounter Location Date Provider Diagnosis [facility] [address] [place] [address] [place] [id number] 10/07/2024 Divina Aguilar Plan Of Treatment No Information Progress Notes * Miki GREENDOB: [birth year] (29 yo M)Acc No.[id number]:10/07/2024 Patient:?Miki GREEN Provider:?Divina Aguilar CNM :1995???Age:29 Y???Sex:Male(T) Date:10/07/2024 Address:[place] [id number] Subjective: * Chief Complaints: * ???1. PrEP F/U. * Medical History:? Objective: * Vitals:? Assessment: Plan: * Treatment: * Billing Information: * Visit Code:? * Procedure Codes:? * Electronic signature of Jose E Aguilar CNM on 11/09/2024 at 09:37 AM EDT Sign off status: Pending * Provider:Alicia Aguilar CNM Date:? 10/07/2024 Generated for Printi ng/Faalinag/eTransmitting on:?11/09/2024 09:37 AM EDT
--- OUTSIDE RECORDS SUMMARY | 2024-11-09 09:38 | XMS_ITS | Clinical Summary ---
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
== END 2024-11-09 09:34 | disposition home or self-care (01) ==
LOC: HO.HMCH 09:07
DX: F64.9 Gender identity disorder, unspecified (principal); F41.8 Other specified anxiety disorders